=== PATIENT | male | born 1960 | race Caucasian/White ===

== ENCOUNTER 2017-04-14 16:41 | Inpatient (IN) | payer MEDICARE, OTHER ==
[~2017-04-14] VITALS: Ht 188 cm; Wt 79.0 kg
[2017-04-14 17:20] VITALS: TEMP 97.8
[2017-04-14] MEDS ORDERED: SOD CHLORIDE 0.9% 1,000 ML IV STA ×2 (17:28→18:48)
[2017-04-14] MEDS ORDERED: CEFTRIAXONE 1 GM/50 ML (PMX) 50 ML IVPB ONE (17:30)
[2017-04-14] MEDS ORDERED: VANCOMYCIN 1 GM (PMX) 250 ML IVPB SCH (17:30)
[2017-04-14 17:57] LABS: BASOPHIL # 0.1 10^3/ul (0.0-0.1); BASOPHILS % 0.6 % (0.0-2.0); EOSINOPHILS # 0.1 10^3/ul (0.0-0.5); HEMATOCRIT 26.7 % (42.0-52.0); HEMOGLOBIN 8.3 g/dl (14.0-18.0); LYMPHOCYTES # 2.6 10^3/ul (0.8-2.9); LYMPHOCYTES % 25.5 % (15.0-51.0); MEAN CORPUSCULAR HEMOGLOBIN 25.2 pg (29.0-33.0); MEAN CORPUSCULAR HGB CONC 31.1 g/dl (32.0-37.0); MEAN CORPUSCULAR VOLUME 80.9 fl (82.0-101.0); MEAN PLATELET VOLUME 9.4 fl (7.4-10.4); MONOCYTE # 0.8 10^3/ul (0.3-0.9); MONOCYTES % 7.8 % (0.0-11.0); NEUTROPHIL # 6.5 10^3/ul (1.6-7.5); NEUTROPHILS % 64.5 % (39.0-77.0); PLATELET COUNT 818 10^3/UL (140-415); RED CELL DISTRIBUTION WIDTH 16.2 % (11.5-14.5)
[2017-04-14 18:12] LABS: INR 1.16; PROTIME 14.9 Sec (12.2-14.2); PT RATIO 1.2
[2017-04-14 18:13] LABS: PARTIAL THROMBOPLASTIN TIME 35.7 Sec (25.0-35.0)
--- NOTE | 2017-04-14 18:16 | ERD ---
ER Documentation Chief Complaint Chief Complaint HYPOTENSIVE ON SCENE WITH RIGHT HEEL WOUND POSSIBLE INFECTION HPI This is a 56-year-old diabetic who states that he was attempting to walk even though he has a left BKA and twisted his right ankle approximately 2 weeks ago. Said his ankle inverted and he heard a pop. He said he got back into his bed. He said from that point on he has been being taking care of by a home health nurse daily. He says he has had some bleeding wound from the right lateral malleolus and also from the heel. He states he has been having daily wound dressings placed but has not had an x-ray or any exam by a physician or other medical personnel. The patient states he has diabetic neuropathy and cannot feel his foot or ankle but can feel the rojas area. He states he has had no fever GI symptoms, chest pain cough or shortness of breath. He said his aboriginal community council member took his blood pressure today and was reading 90/60 so EMS was called ROS All systems reviewed and are negative except as per history of present illness. Medications Home Meds Reported Medications Atorvastatin* (Atorvastatin*) 40 Mg Tablet, 40 MG PO QHS, #30 TAB 04/14/17 Glipizide* (Glipizide*) 10 Mg Tablet, 10 MG PO AC BREAKFAST, TAB 04/14/17 Aspirin* (Aspirin* EC) 81 Mg Tablet.dr, 81 MG PO DAILY, TAB 04/14/17 Lisinopril* (Lisinopril*) 10 Mg Tablet, 10 MG PO DAILY, #30 TAB 04/14/17 Allergies Allergies: Coded Allergies: No Known Drug Allergies (Verified Allergy, Unknown, 04/14/17) PMhx/Soc History of Surgery: Yes (LEFT BKA) Hx 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 Disorder: No Hx Respiratory Disorders: No Hx Cardiac Disorders: No Hx Psychiatric Problems: No Hx Miscellaneous Medical Probl: Yes (DM) Hx Alcohol Use: No Hx Substance Use: No Hx Tobacco Use: No Smoking Status: Former smoker FmHx Family History: No coronary disease Physical Exam Vitals Vital Signs Date Time Temp Pulse Resp B/P Pulse Ox O2 Delivery O2 Flow Rate FiO2 04/14/17 20:11 80 16 101/77 100 Nasal Cannula 2.0 04/14/17 18:30 101 15 114/62 93 Nasal Cannula 4.0 04/14/17 17:20 97.8 100 16 95/69 94 Nasal Cannula 1.0 04/14/17 16:49 98.6 69 20 98/54 98 Physical Exam Const: Well-developed, well-nourished Head: Atraumatic, normocephalic Eyes: Normal Conjunctiva, PERRLA, EOMI, normal sclera, no nystagmus ENT: Normal External Ears, Nose and Mouth, moist mucus membranes. Neck: Full range of motion. No meningismus, no lymphadenopathy. Resp: Clear to auscultation bilaterally, no wheezing, rhonchi, rales Cardio: Regular rate and rhythm, no murmurs, S1 S2 present Abd: Soft, non tender x 4, non distended. Normal bowel sounds, no guarding or rebound, no pulsitile abdominal masses or bruits Skin: No petechiae or rashes, no ecchymosis , no maculopapular rash Back: No midline or flank tenderness Ext: [Left BKA, right ankle has gross deformity fracture there is an open circular wound at the right lateral malleolus that is bleeding there is soft tissue swelling and some mild/moderate erythema to the right lateral malleolus, there is also wounds to the heel on the lateral aspect with ulcerations, Refill less than 2 seconds on the right foot, posterior tibial pulse intact Neur: Awake and alert, STR 5/5 x 4, sensation intact x 4 however he cannot feel his right foot at baseline and this is consistent today, no focal findings, cerebellum intact Psych: Normal Mood and Affect Result Diagram: 04/14/17 1745 04/14/17 1745 Results 24 hrs Laboratory Tests Test 04/14/17 17:45 White Blood Count 10.010^3/ul Red Blood Count 3.3010^6/ul Hemoglobin 8.3g/dl Hematocrit 26.7% Mean Corpuscular Volume 80.9fl Mean Corpuscular Hemoglobin 25.2pg Mean Corpuscular Hemoglobin Concent 31.1g/dl Red Cell Distribution Width 16.2% Platelet Count 41801^3/UL Mean Platelet Volume 9.4fl Neutrophils % 64.5% Lymphocytes % 25.5% Monocytes % 7.8% Eosinophils % 1.0% Basophils % 0.6% Nucleated Red Blood Cells % 0.0/100WBC Neutrophils # 6.510^3/ul Lymphocytes # 2.610^3/ul Monocytes # 0.810^3/ul Eosinophils # 0.110^3/ul Basophils # 0.110^3/ul Nucleated Red Blood Cells # 0.010^3/ul Prothrombin Time 14.9Sec Prothrombin Time Ratio 1.2 INR International Normalized Ratio 1.16 Activated Partial Thromboplast Time 35.7Sec Sodium Level 137mmol/L Potassium Level 5.4mmol/L Chloride Level 100mmol/L Carbon Dioxide Level 21mmol/L Anion Gap 21 Blood Urea Nitrogen 59mg/dl Creatinine 3.45mg/dl Glucose Level 213mg/dl Calcium Level 9.4mg/dl Total Bilirubin 0.1mg/dl Direct Bilirubin 0.00mg/dl Indirect Bilirubin 0.1mg/dl Aspartate Amino Transf (AST/SGOT) 28IU/L Alanine Aminotransferase (ALT/SGPT) 21IU/L Alkaline Phosphatase 206IU/L Total Protein 9.8g/dl Albumin 3.4g/dl Current Medications Medications (Trade) Dose Ordered Sig/Daniel Route PRN Reason Start Time Stop Time Status Last Admin Dose Admin Sodium Chloride 1,000 ml @ 1,000 mls/hr Q1H STAT IV 04/14/17 17:28 04/14/17 18:27 DC 04/14/17 18:03 Ceftriaxone Sodium 50 ml @ 100 mls/hr ONCE ONCE IVPB 04/14/17 17:30 04/14/17 17:59 DC 04/14/17 19:29 Vancomycin HCl 250 ml @ 125 mls/hr ONCE IVPB 04/14/17 17:30 04/14/17 19:29 DC 04/14/17 20:06 Sodium Chloride (NS) 1,000 ml @ 1,000 mls/hr Q1H STAT IV 04/14/17 18:48 04/14/17 19:47 DC 04/14/17 19:34 Procedures/MDM PROCEDURE: XR Right Ankle CLINICAL INDICATION: Trauma TECHNIQUE: Standard 3 view radiographs were submitted. COMPARISON: None FINDINGS: Osseous structures: There is fragmentation of the and increased sclerosis involving the tarsal bones and metatarsals most likely representing neurotrophic joint disease. There is erosion and poor definition to the posterior malleolus. There is fragmentation of the lateral malleolus. Calcaneal spurring is seen at the insertion of the Achilles tendon and plantar aponeurosis. Periosteal reaction is seen along the posterolateral distal tibial shaft. Joint spaces: There is posterior dislocation at the subtalar joint with severe talar inversion. Soft tissues: There is diffuse soft tissue swelling which is most extensive medially with the suggestion of an ulceration or subcutaneous air. Vascular calcification is noted. IMPRESSION: 1. Extensive fragmentation involving the tarsal bones and proximal metatarsals with increased sclerosis. This likely represents neurotrophic joint disease, osteomyelitis cannot be excluded. 2. Erosion of the posterior malleolus and fragmentation of the lateral malleolus. 3. Posterior subtalar dislocation with severe inversion of the talus. 4. Soft tissue swelling and either ulceration or mass or subcutaneous air seen medial to the distal tibia. Vascular calcification is noted. Stella Best, Physician Date Time Electronically viewed and signed by Stella Best Physician on 04/14/2017 19:10 RH/ CC: HERBERTH HAMMER DO PROCEDURE: XR Chest. CLINICAL INDICATION: Trauma. TECHNIQUE: Single frontal view of the chest was obtained. COMPARISON: None FINDINGS: The cardiomediastinal silhouette is normal in size. No focal consolidation is seen. No pleural effusion is seen. No definite pneumothorax. No acute osseous abnormality. IMPRESSION: No radiographic evidence of an acute cardiopulmonary process. RPTAT: GG Josué Kothari, Physician Date Time Electronically viewed and signed by Josué Kothari Physician on 04/14/2017 19:06 PH/ CC: HERBERTH HAMMER DO PROCEDURE: XR Tibia and Fibula. CLINICAL INDICATION: Trauma. TECHNIQUE: AP, lateral views of the right tibia and fibula were obtained. COMPARISON: No prior studies are available for comparison. FINDINGS: There is normal mineralization and alignment. Severe fracture dislocation of the foot and ankle joint. Irregularity of the distal posterior and medial to the. Likely fracture of the distal fibula. The knee joint is unremarkable. Marked periarticular soft tissue swelling and deformity of the foot and ankle joint. IMPRESSION: 1. Severe complex fracture dislocation of the foot and ankle joint with fracture deformity of the posterior and medial tibial and likely distal fibula. CT correlation is recommended. Please refer to dedicated x-ray series of the right ankle or detailed description of ankle fracture. RPTAT:AAJJ Alyson Skelton Physician Date Time Electronically viewed and signed by Alyson Skelton Physician on 04/14/2017 19:11 ZANDER/ CC: HERBERTH HAMMER DO Reviewed the findings with Dr. Gao of orthopedics. States that this type of injury is usually nonsurgical and will result in a likely amputation. I did discuss this with the patient We will admit for open fracture of the ankle with early infection He also has elevated creatinine of 3.45 Departure Diagnosis: Primary Impression: Open right ankle fracture Encounter type: initial encounter Open fracture type: open type I or II Qualified Code: S82.891B - Type I or II open fracture of right ankle, initial encounter Additional Impression: Renal failure Renal failure chronicity: unspecified chronicity Qualified Code: N19 - Renal failure, unspecified chronicity Condition: Stable HERBERTH HAMMER DO Apr 14, 2017 18:16
[2017-04-14 18:18] LABS: ALBUMIN 3.4 g/dl (3.3-4.9); BILIRUBIN,INDIRECT 0.1 mg/dl (0-1.1); BILIRUBIN,TOTAL 0.1 mg/dl (0.2-1.3); CALCIUM 9.4 mg/dl (8.4-10.2); CREATININE 3.45 mg/dl (0.61-1.24); POTASSIUM 5.4 mmol/L (3.5-5.1); TOTAL PROTEIN 9.8 g/dl (6.1-8.1)
--- NOTE | 2017-04-14 19:06 | RADRPT ---
PROCEDURE: XR Chest. CLINICAL INDICATION: Trauma. TECHNIQUE: Single frontal view of the chest was obtained. COMPARISON: None FINDINGS: The cardiomediastinal silhouette is normal in size. No focal consolidation is seen. No pleural effusion is seen. No definite pneumothorax. No acute osseous abnormality. IMPRESSION: No radiographic evidence of an acute cardiopulmonary process. RPTAT: GG Josué Kothari Physician Date Time Electronically viewed and signed by Josué Kothari Physician on 04/14/2017 19:06 /
--- NOTE | 2017-04-14 19:10 | RADRPT ---
PROCEDURE: XR Right Ankle CLINICAL INDICATION: Trauma TECHNIQUE: Standard 3 view radiographs were submitted. COMPARISON: None FINDINGS: Osseous structures: There is fragmentation of the and increased sclerosis involving the tarsal bones and metatarsals most likely representing neurotrophic joint disease. There is erosion and poor defi nition to the posterior malleolus. There is fragmentation of the lateral malleolus. Calcaneal spurri ng is seen at the insertion of the Achilles tendon and plantar aponeurosis. Periosteal reaction is s een along the posterolateral distal tibial shaft. Joint spaces: There is posterior dislocation at the subtalar joint with severe talar inversion. Soft tissues: There is diffuse soft tissue swelling which is most extensive medially with the sugges tion of an ulceration or subcutaneous air. Vascular calcification is noted. IMPRESSION: 1. Extensive fragmentation involving the tarsal bones and proximal metatarsals with increased scler osis. This likely represents neurotrophic joint disease, osteomyelitis cannot be excluded. 2. Erosion of the posterior malleolus and fragmentation of the lateral malleolus. 3. Posterior subtalar dislocation with severe inversion of the talus. 4. Soft tissue swelling and either ulceration or mass or subcutaneous air seen medial to the distal tibia. Vascular calcification is noted. Physician Hung Date Time Electronically viewed and signed by Physician Hung on 04/14/2017 19:10 /
--- NOTE | 2017-04-14 19:11 | RADRPT ---
PROCEDURE: XR Tibia and Fibula. CLINICAL INDICATION: Trauma. TECHNIQUE: AP, lateral views of the right tibia and fibula were obtained. COMPARISON: No prior studies are available for comparison. FINDINGS: There is normal mineralization and alignment. Severe fracture dislocation of the foot and ankle nehemias nt. Irregularity of the distal posterior and medial to the. Likely fracture of the distal fibula. Th e knee joint is unremarkable. Marked periarticular soft tissue swelling and deformity of the foot an d ankle joint. IMPRESSION: 1. Severe complex fracture dislocation of the foot and ankle joint with fracture deformity of the p osterior and medial tibial and likely distal fibula. CT correlation is recommended. Please refer to dedicated x-ray series of the right ankle or detailed description of ankle fracture. RPTAT:AAJJ Physician Paresh Date Time Electronically viewed and signed by Physician Paresh on 04/14/2017 19:11 ZANDER/
[2017-04-14] MEDS ORDERED: LISI10TA2 PO (20:19)
[2017-04-14] MEDS ORDERED: GLIP-95 PO (20:20)
[2017-04-14] MEDS ORDERED: ASPI-664 PO (20:20)
[2017-04-14] MEDS ORDERED: ATOR40TA68 PO (20:21)
[2017-04-14] MEDS ORDERED: SOD CHLORIDE 0.9% 1,000 ML IV SCH ×2 (22:02→22:13)
[2017-04-14] MEDS ORDERED: ONDANSETRON 4 MG INJ IV PRN ×2 (22:30)
[2017-04-14] MEDS ORDERED: morphine 2 MG INJ IV PRN (22:30)
[2017-04-14] MEDS ORDERED: NACL 0.9% 3 ML SYG IV SCH (22:30)
[2017-04-14] MEDS ORDERED: ACETAMINOPHEN 325 MG TAB PO PRN ×2 (22:30)
[2017-04-14] MEDS ORDERED: HYDROCODONE/APAP (5/325) TAB PO PRN (22:30)
--- NOTE | 2017-04-14 23:15 | RADRPT ---
PROCEDURE: CT of the right ankle without contrast. CLINICAL INDICATION: Pain. TECHNIQUE: CT scan of the right ankle was performed on a multi-detector high-resolution CT scanner . Contiguous axial images were obtained without intravenous contrast. Coronal and sagittal reforma tted images were also obtained. Images were reviewed on the PACS workstation. DICOM images are avai lable. One or more of the following dose reduction techniques were used: - Automated exposure control. - Adjustment of the mA and/or kV according to patient size. - Use of iterative reconstruction technique. Exam CTD/vol = 18.31 mGy. Total exam DLP = 472.65 mGy-cm. COMPARISON: None. FINDINGS: There are extensive fragmentation and erosive changes about the mid and hind foot. There is anterior tibiotalar dislocation. There are extensive cortical erosions about the mid and hind foot and areas of periosteal thickening about the distal tibia and fibula. There is surrounding increased soft tis moiz with fluid and gas. There is extensive subcutaneous stranding. IMPRESSION: Extensive fragmentation and erosive changes about the mid and hind foot likely represents neuropathi c joint disease. There are changes suggestive of superimposed osteomyelitis with surrounding increas ed soft tissue, fluid and gas concerning for gas gangrene. Anterior tibiotalar dislocation. A call report was made to Dr. Hernández at 11:15 p.m. .Segundo Henao MD, MD Date Time Electronically viewed and signed by .Segundo Henao MD, MD on 04/14/2017 23:15 .T/
[2017-04-15] MEDS ORDERED: PIPER-TAZO 2.25 GM (PMX) 50 ML IVPB SCH (00:30)
--- NOTE | 2017-04-15 00:55 | HP ---
Date/Time of Note Date/Time of Note DATE: 04/15/17 TIME: 00:36 Assessment/Plan VTE Prophylaxis VTE Prophylaxis Intervention: contraindicated VTE Contraindication Reason: amputee, sx procedure on lower extremity Lines/Catheters IV C[facility]ter Type [facility]from [facility]): Saline Lock Assessment/Plan Chief Complaint/Hosp Course This is a 56-year-old male being admitted to the [facility] floor for: #1 Right lower extremity infection with possible gas gangrene: X-rays and CT scan show Severe complex fracture dislocation of the foot and ankle joint with fracture deformity of the posterior and medial tibial and likely distal fibula as well as possible signs of gas gangrene/osteomyelitis. The current time lactate is 1.1. Will treat with empiric antibiotics vancomycin and Zosyn and clindamycin all renally dosed. Orthopedic surgery has been consulted patient likely will need surgical intervention/amputation. I will obtain a preop EKG and echocardiogram as well as a cardiology consult for surgery clearance. #2 right foot and ankle joint fracture: Orthopedic surgery has been consulted. Please see #1. Patient has a history of a right foot Charcot joint. As well as right plantar foot ulcer. #3 normocytic anemia: We will check iron studies, this likely could be secondary to patient underlying kidney disease. Will continue to monitor. And transfuse as necessary. #4 renal failure, acute versus chronic: I do not have a baseline at this time, however patient was noted to have acute kidney injury during his admission for sepsis [facility] the [facility] according to the [place] doctor I spoke to with elevation in creatinine from around 1-2. At the current time we will check a renal ultrasound, will check urine microscopic, will check urine studies. Will renally dose all medications will avoid nephrotoxic agents. Hold VANDANA inhibitor lisinopril 10 mg at the current time. #5 diabetes mellitus: At the current time will hold patient's oral medications. Will put the patient on insulin sliding scale. Patient is also on Lantus 30 mg at night. However I am unsure whether patient is compliant with medications. Will check a hemoglobin A1c. #6 hyperlipidemia: We will check lipid panel, continue atorvastatin 40 mg #7 Hypertension: Continue monitor blood pressure, will hold lisinopril at this time secondary to renal failure. #8 DVT GI prophylaxis: At the current time will hold mechanical and chemical anticoagulation secondary to patient being an amputee as well as possible plan for surgical intervention in the a.m. by orthopedic surgery, no GI prophylaxis indicated. Further treatment strategy will be implemented as per the clinical course Problems: HPI/ROS Admit Date/Time Admit Date/Time Hx of Present Illness Chief complaint: Twisted right ankle This is a 56-year-old diabetic who states that he was attempting to walk even though he has a left BKA and twisted his right ankle approximately 2 weeks ago. Of note patient is a poor historian. He states that he was walking 2 weeks ago and while walking his ankle inverted and he heard a pop. He said he got back into his bed. He said from that point on he has been being taking care of by a home health nurse daily. He says he has had some bleeding wound from the right lateral malleolus and also from the heel. He states he has been having daily wound dressings placed but has not had an x-ray or any exam by a physician or other medical personnel. The patient states he has diabetic neuropathy and cannot feel his foot or ankle but can feel the rojas area. He states he has had no fever GI symptoms, chest pain cough or shortness of breath. He said his qa architect took his blood pressure today and was reading 90/ 60 so EMS was called. Of note, I was able to get in touch with the [place] and I spoke with Dr. Gardner who kindly updated me on the patient's chronic history. She stated the patient' s history of diabetes mellitus hypertension he also is noted to have right foot Charcot joint and chronic right osteomyelitis and a plantar ulcer of the right foot. He has been apparently been seen by the wound clinic but he missed his most recent appointment. He also had a left BKA in 2013. Allergies: NKDA Medications: Lisinopril 10 mg once a day Aspirin 81 mg once a day Lantus 30 units nightly Metformin 1000 mg twice daily Glipizide 10 mg twice daily Atorvastatin 40 mg once daily The above medications were obtained from the [place] physician Dr. Gardner, unsure whether patient is actually compliant with his medications as patient did not recall the meds that he takes. ROS Const: As per HPI Eyes : No pain discharge or redness or change in visual acuity ENT: No pain, sore throat, congestion, congestion, dysphagia or discharge Respiratory: No shortness of breath, cough, sputum, wheezing, or pleuritic pain Cardiovascular: No chest pain, palpitation, PND, or edema GI : no change in appetite, abdominal pain, nausea, vomiting, diarrhea, constipation, or change in the color his stool Genitourinary: No dysuria, hematuria, flank pain , discharge or CVA tenderness Musculoskeletal: As per HPI Skin: No rash, bruising or hives Neuro: No headache, dizziness, syncope, seizure, focal weakness Endocrine: No polyuria, polydipsia, temperature intolerance Psych: No hallucination, depression, anxiety or suicidal ideation PMH/Family/Social Past Medical History Diabetes mellitus, hypertension, hyperlipidemia, chronic right osteomyelitis of the foot, chronic right foot plantar ulcer, history of left BKA 2013 Past Surgical History Left BKA 2013 Family History Significant Family History: no pertinent family hx Social History Alcohol Use: none Smoking Status: Never smoker Drug Use: none Exam/Review of Systems Vital Signs Vitals Vital Signs Date Time Temp Pulse Resp B/P Pulse Ox O2 Delivery O2 Flow Rate FiO2 04/14/17 20:11 80 16 101/77 100 Nasal Cannula 2.0 04/14/17 17:20 97.8 Exam Exam General: Patient is lying in bed in no acute distress. HEENT: Atraumatic, normocephalic. The pupils are equal, round and reactive. Extraocular motor are intact, poor dentition Neck: Supple with full range of motion. No rigidity or meningismus Chest: Nontender Lungs: Clear to auscultation bilaterally no crackles rales or wheezing Heart: Normal S1-S2, Regular rhythm and rate. No murmur, S3, or S4 Abdomen: Soft , nontender, nondistended , bowel sounds are present. No guarding no rebound tenderness , No masses or organomegaly. No costovertebral temporal angle mass Extremities: Left BKA, right lower extremity was wrapped in the ER and patient deferred examination at this time. DC imaging results for further details as well as ER physician documentation. Neurologic: Normal mental status, speech normal, cranial nerves II through XII are intact, Psych: Patient does not appear to have good knowledge of his medical history. I am unsure whether he has good insight into his clinical condition. I am unsure whether this patient is compliant with his medications as he does not know his own medical conditions. Additional Comments PROCEDURE: XR Right Ankle CLINICAL INDICATION: Trauma TECHNIQUE: Standard 3 view radiographs were submitted. COMPARISON: None FINDINGS: Osseous structures: There is fragmentation of the and increased sclerosis involving the tarsal bones and metatarsals most likely representing neurotrophic joint disease. There is erosion and poor definition to the posterior malleolus. There is fragmentation of the lateral malleolus. Calcaneal spurring is seen at the insertion of the Achilles tendon and plantar aponeurosis. Periosteal reaction is seen along the posterolateral distal tibial shaft. Joint spaces: There is posterior dislocation at the subtalar joint with severe talar inversion. Soft tissues: There is diffuse soft tissue swelling which is most extensive medially with the suggestion of an ulceration or subcutaneous air. Vascular calcification is noted. IMPRESSION: 1. Extensive fragmentation involving the tarsal bones and proximal metatarsals with increased sclerosis. This likely represents neurotrophic joint disease, osteomyelitis cannot be excluded. 2. Erosion of the posterior malleolus and fragmentation of the lateral malleolus. 3. Posterior subtalar dislocation with severe inversion of the talus. 4. Soft tissue swelling and either ulceration or mass or subcutaneous air seen medial to the distal tibia. Vascular calcification is noted. Physician Hung Date Time Electronically viewed and signed by Physician Hung on 04/14/2017 19:10 RH/ CC: HERBERTH HAMMER DO PROCEDURE: XR Chest. CLINICAL INDICATION: Trauma. TECHNIQUE: Single frontal view of the chest was obtained. COMPARISON: None FINDINGS: The cardiomediastinal silhouette is normal in size. No focal consolidation is seen. No pleural effusion is seen. No definite pneumothorax. No acute osseous abnormality. IMPRESSION: No radiographic evidence of an acute cardiopulmonary process. RPTAT: GG Josué Kothari Physician Date Time Electronically viewed and signed by Physician Sonia on 04/14/2017 19:06 PH/ CC: HERBERTH HAMMER DO PROCEDURE: XR Tibia and Fibula. CLINICAL INDICATION: Trauma. TECHNIQUE: AP, lateral views of the right tibia and fibula were obtained. COMPARISON: No prior studies are available for comparison. FINDINGS: There is normal mineralization and alignment. Severe fracture dislocation of the foot and ankle joint. Irregularity of the distal posterior and medial to the. Likely fracture of the distal fibula. The knee joint is unremarkable. Marked periarticular soft tissue swelling and deformity of the foot and ankle joint. IMPRESSION: 1. Severe complex fracture dislocation of the foot and ankle joint with fracture deformity of the posterior and medial tibial and likely distal fibula. CT correlation is recommended. Please refer to dedicated x-ray series of the right ankle or detailed description of ankle fracture. RPTAT:AAJJ Physician Paresh Date Time Electronically viewed and signed by Physician Paresh on 04/14/2017 19:11 ZANDER/ CC: HERBERTH HAMMER DO PROCEDURE: CT of the right ankle without contrast. CLINICAL INDICATION: Pain. TECHNIQUE: CT scan of the right ankle was performed on a multi-detector high- resolution CT scanner. Contiguous axial images were obtained without intravenous contrast. Coronal and sagittal reformatted images were also obtained. Images were reviewed on the PACS workstation. DICOM images are available. One or more of the following dose reduction techniques were used: - Automated exposure control. - Adjustment of the mA and/or kV according to patient size. - Use of iterative reconstruction technique. Exam CTD/vol = 18.31 mGy. Total exam DLP = 472.65 mGy-cm. COMPARISON: None. FINDINGS: There are extensive fragmentation and erosive changes about the mid and hind foot. There is anterior tibiotalar dislocation. There are extensive cortical erosions about the mid and hind foot and areas of periosteal thickening about the distal tibia and fibula. There is surrounding increased soft tissue with fluid and gas. There is extensive subcutaneous stranding. IMPRESSION: Extensive fragmentation and erosive changes about the mid and hind foot likely represents neuropathic joint disease. There are changes suggestive of superimposed osteomyelitis with surrounding increased soft tissue, fluid and gas concerning for gas gangrene. Anterior tibiotalar dislocation. A call report was made to Dr. Hammer at 11:15 p.m. .Segundo Henao MD, MD Date Time Electronically viewed and signed by .Segundo Henao MD, on 04/14/2017 23:15 .T/ CC: FABIANO TA Labs Result Diagram: 04/14/17 1745 04/14/17 1745 Medications Medications Current Medications Sodium Chloride (NS) 1,000 ml @ 75 mls/hr [id number] IV Last administered on t 23:44; Admin Dose 75 MLS/HR; Start 04/14/17 at 22:13 Ondansetron HCl (Zofran Inj) 4 mg Q6H PRN IV NAUSEA AND/OR VOMITING; Start at 22:30 Acetaminophen (Tylenol Tab) 650 mg Q6H PRN PO PAIN LEVEL 1-3 OR FEVER; Start 04/14/17 at 22:30 Acetaminophen/ Hydrocodone Bitart (Fitzhugh (5/325)) 1 tab Q6H PRN PO MODERATE PAIN LEVEL 4-6; Start 04/14/17 at 22:30 Morphine Sulfate 2 mg 2 mg Q4H PRN IV SEVERE PAIN LEVEL 7-10; Start 04/14/17 at 22:30 Piperacillin Sod/ Tazobactam Sod 50 ml @ 100 mls/hr Q8 IVPB ; Start 04/15/17 at 00:30; Status UNV Clindamycin HCl/ Dextrose (Cleocin 900 Mg/ D5W (Pmx)) 50 ml @ 50 mls/hr Q6 IVPB ; Start 04/15/17 at 00:30; Status UNV Miscellaneous Information (* Miscellaneous Pharmacy Order) Discontinue current oral sulfonylur... ONCE ONCE XX ; Start 04/15/17 at 01:00; Stop 04/15/17 at 01:01; Status UNV Diagnostic Test (Pha) (Accu-Chek) XX ; Start 04/15/17 at 02:00; Status UNV Miscellaneous Information (* Miscellaneous Pharmacy Order) HYPOGLYCEMIA PROTOCOL w... ONCE ONCE XX ; Start 04/15/17 at 01:00; Stop 04/15/17 at 01:01 ; Status UNV Insulin Aspart (Novolog Insulin Pen) NOVOLOG *MILD* ALGORI... Q4 SC ; Start at 01:00; Status UNV Miscellaneous Information (* Miscellaneous Pharmacy Order) Discontinue all previ... ONCE ONCE XX ; Start 04/15/17 at 01:00; Stop 04/15/17 at 01:01; Status UNV FABIANO TA Apr 15, 2017 00:54
[2017-04-15] MEDS ORDERED: MTF1000T PO (01:32)
[2017-04-15] MEDS ORDERED: LANT3I SC (01:33)
[2017-04-15 01:50] VITALS: BP 95/60; PULSE 85; RESP 17; Ht 188 cm; Wt 79.0 kg
[2017-04-15] MEDS ORDERED: GLUCOSE GEL 15 GRAM TUBE PO PRN ×2 (02:00)
[2017-04-15] MEDS ORDERED: GLUCAGON 1 MG INJ IM PRN (02:00)
[2017-04-15] MEDS ORDERED: DEXTROSE 50% 50 ML SYRINGE IV PRN ×2 (02:00)
[2017-04-15] MEDS ORDERED: GLUCOSE GEL 15 GRAM TUBE BUCCAL PRN (02:00)
[2017-04-15] MEDS: ACCU-CHEK XX SCH (02:00)
[2017-04-15] MEDS: PIPER-TAZO 2.25 GM (PMX) 50 ML IVPB SCH ×4 (02:38→23:06)
[2017-04-15] MEDS: CLINDAMYCIN 900 MG/D5W (PMX) 50 ML IVPB SCH ×5 (03:12→23:47)
[2017-04-15] MEDS: INSULIN ASPART [NOVOLOG] 3 ML PEN SC SCH ×6 (04:00→21:58)
[2017-04-15 06:37] LABS: ABNORMAL IP MESSAGE 1; HEMATOCRIT 21.2 % (42.0-52.0); MEAN CORPUSCULAR HEMOGLOBIN 24.8 pg (29.0-33.0); MEAN CORPUSCULAR HGB CONC 30.2 g/dl (32.0-37.0); MEAN CORPUSCULAR VOLUME 82.2 fl (82.0-101.0); MEAN PLATELET VOLUME 9.3 fl (7.4-10.4); PLATELET COUNT 556 10^3/UL (140-415); POSITIVE DIFF @See below; RED BLOOD COUNT 2.58 10^6/ul (4.70-6.10); RED CELL DISTRIBUTION WIDTH 15.9 % (11.5-14.5); WHITE BLOOD COUNT 7.5 10^3/ul (4.8-10.8)
[2017-04-15 06:50] LABS: HEMOGLOBIN 6.4 g/dl (14.0-18.0)
[2017-04-15 07:03] LABS: ALBUMIN 2.4 g/dl (3.3-4.9); ALBUMIN/GLOBULIN RATIO 0.44; BILIRUBIN,INDIRECT 0.1 mg/dl (0-1.1); BILIRUBIN,TOTAL 0.1 mg/dl (0.2-1.3); CALCIUM 8.1 mg/dl (8.4-10.2); CHOL/HDL RATIO 7.5 RATIO; CREATININE 2.51 mg/dl (0.61-1.24); MAGNESIUM 2.4 mg/dl (1.7-2.5); POTASSIUM 4.5 mmol/L (3.5-5.1); TOTAL PROTEIN 7.8 g/dl (6.1-8.1)
[2017-04-15 07:08] LABS: IRON 13 ug/dl (35-150)
[2017-04-15 07:17] LABS: TOTAL IRON BINDING CAPACITY 144 ug/dl (241-421)
[2017-04-15 07:27] LABS: THYROID STIMULATING HORMONE 1.37 MIU/L (0.465-4.680)
[2017-04-15 07:31] LABS: HEMATOCRIT 21.6 % (42.0-52.0)
[2017-04-15 07:39] LABS: HEMOGLOBIN 6.5 g/dl (14.0-18.0)
[2017-04-15 07:42] LABS: ANISOCYTOSIS 1+ (0-0); EOSINOPHILS % (M) 4 % (0-7); HYPOCHROMASIA 1+ (0-0); MICROCYTOSIS 1+ (0-0); MONOCYTES % (M) 8 % (0-11); PLATELET ESTIMATE INCREASED; POLYCHROMASIA 3+ (0-0)
[2017-04-15 07:54] VITALS: BP 97/62; RESP 18
--- NOTE | 2017-04-15 09:22 | RADRPT ---
PROCEDURE: Renal US. CLINICAL INDICATION: Abnormal renal function TECHNIQUE: Multiple sonographic images of the kidneys were obtained. The images were reviewed on a PACS workstation. COMPARISON: No prior studies are available for comparison. FINDINGS: Both kidneys are normal in echogenicity. There is normal renal cortical thickness without focal thi nning or scarring. No solid renal masses are identified. There is no evidence of renal calculi or obstructive uropathy. The right kidney measures 11.4 cm, and the left kidney measures 13.0 cm. Spot images of the pelvis demonstrating normally distended bladder with smooth contours. IMPRESSION: 1. Unremarkable renal ultrasound. No evidence of renal calculi or obstructive uropathy 2. Normal renal cortical thickness bilaterally RPTAT: HH .Randy Hardin MD, Date Time Electronically viewed and signed by .Randy Hardin MD, MD on 04/15/2017 09:22 .W/
--- NOTE | 2017-04-15 09:28 | CONS ---
Date/Time of Note Date/Time of Note DATE: 04/15/17 TIME: 09:27 Assessment/Plan Assessment/Plan Additional Assessment/Plan 1. Non Oliguric DA on CKD possibley stage III due to ATN and prerenal azotemia 2. Severe anemia s/p PRBC 3. 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 HTN 5. HL 6. Right Ankle Fracture Plan: US renal Urine studies IVF NS at 75 cc/hr, CK total, Uric acid need better Glycemic control if Cr continues to improve with IVF hydration then pt is cleared to have ankle surgery from renal stand point of view Thanks for consultaiton, I will continue to follow up on patient Consultation Date/Type/Reason Admit Date/Time 04/15/2017 Date of Consultation: Apr 15, 2017 Type of Consultation: NEPHROLOGY Reason for Consultation acute vs acute on chronic renal failure Referring Provider: FABIANO TA Hx of Present Illness 56-year-old diabetic who states that he was attempting to walk even though he has a left BKA and twisted his right ankle approximately 2 weeks ago. Of note patient is a poor historian. He states that he was walking 2 weeks ago and while walking his ankle inverted and he heard a pop. He said he got back into his bed. He said from that point on he has been being taking care of by a home health nurse daily. He says he has had some bleeding wound from the right lateral malleolus and also from the heel. He states he has been having daily wound dressings placed but has not had an x-ray or any exam by a physician or other medical personnel. The patient states he has diabetic neuropathy and cannot feel his foot or ankle but can feel the rojas area. He states he has had no fever GI symptoms, chest pain cough or shortness of breath. He said his director emergency department took his blood pressure today and was reading 90/60 so EMS was called. right ankle pain and swelling Constitutional: no complaints Eyes: no complaints ENT: no complaints Respiratory: no complaints Cardiovascular: no complaints Gastrointestinal: no complaints Genitourinary: no complaints Musculoskeletal: no complaints Skin: no complaints Neurologic: no complaints Endocrine: no complaints Lymphatic: no complaints Psychological: no complaints Immunologic: no complaints Past Medical History Medical History: diabetes, high cholesterol, hypertension, renal disease Past Surgical History Past Surgical Hx: no surgical history Family History Significant Family History: no pertinent family hx Social History Alcohol Use: none Smoking Status: Never smoker Drug Use: none Exam/Review of Systems Vital Signs Vitals Vital Signs Date Time Temp Pulse Resp B/P Pulse Ox O2 Delivery O2 Flow Rate FiO2 04/15/17 07:54 98.9 91 18 97/62 98 04/15/17 01:50 Room Air 04/15/17 00:52 2.0 Intake and Output 04/14/17 04/14/17 04/15/17 14:59 22:59 06:59 Intake Total 250 ml Balance 250 ml Exam Constitutional: alert Psych: no complaints Head: normocephalic Eyes: nl conjunctiva ENMT: nl external ears & nose Neck: supple Respiratory: clear to auscultation, diminished breath sounds, normal air movement Cardiovascular: nl pulses, regular rate and rhythm Gastrointestinal: non-tender, soft Musculoskeletal: nl extremities to inspection, nl gait and stance Extremities: normal pulses, other (right ankle swelling +) 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: MANAGING EDITOR II-XII intact, nl mental status Skin: nl turgor, rash or lesions Results Result Diagram: 04/15/17 0659 04/15/17 0534 Results 24 hrs Laboratory Tests Test 04/14/17 17:45 04/14/17 23:47 04/15/17 01:44 04/15/17 03:57 White Blood Count 10.0 Red Blood Count 3.30 L Hemoglobin 8.3 L Hematocrit 26.7 L Mean Corpuscular Volume 80.9 L Mean Corpuscular Hemoglobin 25.2 L Mean Corpuscular Hemoglobin Concent 31.1 L Red Cell Distribution Width 16.2 H Platelet Count 818 H Mean Platelet Volume 9.4 Neutrophils % 64.5 Lymphocytes % 25.5 Monocytes % 7.8 Eosinophils % 1.0 Basophils % 0.6 Nucleated Red Blood Cells % 0.0 Neutrophils # 6.5 Lymphocytes # 2.6 Monocytes # 0.8 Eosinophils # 0.1 Basophils # 0.1 Nucleated Red Blood Cells # 0.0 Prothrombin Time 14.9 H Prothrombin Time Ratio 1.2 INR International Normalized Ratio 1.16 Activated Partial Thromboplast Time 35.7 H Sodium Level 137 Potassium Level 5.4 H Chloride Level 100 Carbon Dioxide Level 21 Anion Gap 21 H Blood Urea Nitrogen 59 H Creatinine 3.45 H Glucose Level 213 Calcium Level 9.4 Total Bilirubin 0.1 L Direct Bilirubin 0.00 Indirect Bilirubin 0.1 Aspartate Amino Transf (AST/SGOT) 28 Alanine Aminotransferase (ALT/SGPT) 21 Alkaline Phosphatase 206 H Total Protein 9.8 H Albumin 3.4 Lactic Acid Level 1.1 Bedside Glucose 156 149 Test 04/15/17 05:22 04/15/17 05:34 04/15/17 06:59 04/15/17 07:56 Bedside Glucose 143 149 White Blood Count 7.5 # Red Blood Count 2.58 #L Hemoglobin 6.4 #*L 6.5 *L Hematocrit 21.2 #L 21.6 L Mean Corpuscular Volume 82.2 Mean Corpuscular Hemoglobin 24.8 L Mean Corpuscular Hemoglobin Concent 30.2 L Red Cell Distribution Width 15.9 H Platelet Count 556 #H Mean Platelet Volume 9.3 Neutrophils % Segmented Neutrophils % (Manual) 56 Band Neutrophils % (Manual) 1 Lymphocytes % Lymphocytes % (Manual) 31 Monocytes % Monocytes % (Manual) 8 Eosinophils % Eosinophils % (Manual) 4 Basophils % Nucleated Red Blood Cells % 0.0 Neutrophils # Neutrophils # (Manual) 4.2 Band Neutrophils # 0.0 Absolute Lymphocytes (Manual) 2.3 Lymphocytes # Monocytes # Absolute Monocytes (Manual) 0.6 Eosinophils # Basophils # Nucleated Red Blood Cells # Platelet Estimate INCREASED Polychromasia 3+ Hypochromasia 1+ Anisocytosis 1+ Microcytosis 1+ Sodium Level 142 Potassium Level 4.5 Chloride Level 111 H Carbon Dioxide Level 24 Anion Gap 12 # Blood Urea Nitrogen 54 H Creatinine 2.51 H Glucose Level 137 # Hemoglobin A1c 6.8 H Osmolality 308 H Calcium Level 8.1 L Magnesium Level 2.4 Iron Level 13 L Total Iron Binding Capacity 144 L Percent Iron Saturation 9 L Total Bilirubin 0.1 L Direct Bilirubin 0.00 Indirect Bilirubin 0.1 Aspartate Amino Transf (AST/SGOT) 31 Alanine Aminotransferase (ALT/SGPT) 27 Alkaline Phosphatase 140 H Total Protein 7.8 # Albumin 2.4 #L Globulin 5.40 H Albumin/Globulin Ratio 0.44 Triglycerides Level 139 Cholesterol Level 98 L LDL Cholesterol, Calculated 57 HDL Cholesterol 13 L Cholesterol/HDL Ratio 7.5 Thyroid Stimulating Hormone (TSH) 1.370 Medications Medications Current Medications Sodium Chloride (NS) 1,000 ml @ 75 mls/hr [id number] IV Last administered on t 23:44; Admin Dose 75 MLS/HR; Start 04/14/17 at 22:13 Ondansetron HCl (Zofran Inj) 4 mg Q6H PRN IV NAUSEA AND/OR VOMITING; Start at 22:30 Acetaminophen (Tylenol Tab) 650 mg Q6H PRN PO PAIN LEVEL 1-3 OR FEVER; Start 04/14/17 at 22:30 Acetaminophen/ Hydrocodone Bitart (Lonepine (5/325)) 1 tab Q6H PRN PO MODERATE PAIN LEVEL 4-6; Start 04/14/17 at 22:30 Morphine Sulfate 2 mg 2 mg Q4H PRN IV SEVERE PAIN LEVEL 7-10; Start 04/14/17 at 22:30 Clindamycin HCl/ Dextrose (Cleocin 900 Mg/ D5W (Pmx)) 50 ml @ 50 mls/hr Q6 IVPB Last administered on 04/15/17 06:58; Admin Dose 50 MLS/HR; Start 04/15/17 at 00:30 Diagnostic Test (Pha) (Accu-Chek) 1 ea 02 XX ; Start 04/15/17 at 02:00 Insulin Aspart (Novolog Insulin Pen) NOVOLOG *MILD* ALGORI... Q4 SC Last administered on 04/15/17 04:00; Admin Dose 1 UNIT; Start 04/15/17 at 01:00 Atorvastatin Calcium 40 mg 40 mg QHS PO ; Start 04/15/17 at 21:00 Piperacillin Sod/ Tazobactam Sod (Zosyn 2.25gm/ 50ml (Pmx)) 50 ml @ 100 mls/hr Q8 IVPB Last administered on 04/15/17 02:38; Admin Dose 100 MLS/HR; Start at 02:00 Miscellaneous Information 1 ea NOTE XX ; Start 04/15/17 at 02:00 Glucose (Glutose) 15 gm Q15M PRN PO DECREASED GLUCOSE; Start 04/15/17 at 02:00 Glucose (Glutose) 22.5 gm Q15M PRN PO DECREASED GLUCOSE; Start 04/15/17 at 02: 00 Dextrose (D50w Syringe) 25 ml Q15M PRN IV DECREASED GLUCOSE; Start 04/15/17 at 02:00 Dextrose (D50w Syringe) 50 ml Q15M PRN IV DECREASED GLUCOSE; Start 04/15/17 at 02:00 Glucagon (Glucagen) 1 mg Q15M PRN IM DECREASED GLUCOSE; Start 04/15/17 at 02: 00 Glucose (Glutose) 15 gm Q15M PRN BUCCAL DECREASED GLUCOSE; Start 04/15/17 at 02:00 KIMBERLY CONNOR MD Apr 15, 2017 09:28
[2017-04-15] MEDS: SOD FERRIC GLUC COMPLX 125 MG in SOD CHLORIDE 0.9% 100 ML IVPB SCH (11:00)
--- NOTE | 2017-04-15 12:23 | CONS ---
DATE OF ADMISSION: 04/14/2017 DATE OF CONSULTATION: 04/15/2017 HISTORY OF PRESENT ILLNESS: The patient is a 56-year-old male with known diabetes, who was admitted on April 14, 2017, when he came to the emergency room complaining of deformity along with an open wound and a necrotic lesion involving the heel. Because of the diabetes, his sensation involving the right lower extremity is severely compromised and he is known to have a neuropathic joint or Charcot's joint involving his right ankle and right foot. 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 According to the patient because of the obvious deformity and Charcot's joint, an amputation of the right lower extremity has been recommended, but was never done. About 2 weeks prior to his admission, he sustained a twisting injury to his right ankle while attempting to walk developing further deformity along with the open wound. Instead of seeking any medical attention, he has been treated with dressing changes by visiting nurses. Denies any history of fever or chills. According to further information obtained a primary care doctor [facility], he is also known to have hypertension and chronic osteomyelitis involving the right lower extremity and chronic kidney disease, At the time of my evaluation, his right lower extremity is heavily immobilized with the splint and dressings. There were obvious sensory compromise over the right toes. According to the ER physician's description, there is an open wound over the lateral aspect of the right ankle with extensive deformities. There also is an area of decubitus lesions involving the plantar area of the right heel. DIAGNOSTIC DATA: X-rays and CT scan of the right ankle and foot are showing extensive skeletal destructions typical of Charcot's joint. There were findings suggestive of osteomyelitis involving the distal portion of the tibia and fibula along with the talus and there was the presence of gas in the area, suggesting the presence of gas gangrene. The popliteal artery was palpable and the right lower extremity was warm up to the mid point of the right leg. 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 TREATMENT PLAN: BK amputation of the right lower extremity as soon as possible and as soon as his medical condition is cleared for surgery. Dictated By: In Catia Gao MD /[email or web address] /Document#: [id number]
[2017-04-15 12:35] LABS: ADD UMIC YES; UR ASCORBIC ACID NEGATIVE (NEGATIVE); UR BACTERIA FEW /HPF (NONE SEEN); UR BILIRUBIN (Dip) NEGATIVE (NEGATIVE); UR BLOOD (Dip) 1+ mg/dL (NEGATIVE); UR CLARITY CLEAR (CLEAR); UR COLOR YELLOW (YELLOW); UR GLUCOSE (Dip) NEGATIVE (NEGATIVE); UR KETONES (Dip) NEGATIVE (NEGATIVE); UR LEUKOCYTE ESTERASE (Dip) NEGATIVE Leu/ul (NEGATIVE); UR MUCUS FEW /HPF (NONE SEEN); UR NITRITE (Dip) NEGATIVE (NEGATIVE); UR RBC 3 /HPF (0-5); UR SPECIFIC GRAVITY (Dip) 1.015 (1.003-1.030); UR TOTAL PROTEIN (Dip) 1+ mg/dl (NEGATIVE); UR UROBILINOGEN (Dip) NEGATIVE (NEGATIVE)
[2017-04-15 14:00] VITALS: BP 129/84; RESP 20
--- NOTE | 2017-04-15 15:46 | CONS ---
Date/Time of Note Date/Time of Note DATE: 04/15/17 TIME: 15:41 Assessment/Plan Assessment/Plan Chief Complaint/Hosp Course CV preop evaluation gas gangrene and open fracture of right ankle DM HTN dyslipidemia severe anemia. recommendations: transfusions will be deferred to IM team Patient has any active cardiac symptoms or history of any cardiac disorder to me. No further cardiac workup would be indicated at this time prior to his needed orthopedic surgery/amputation. Patient would be at moderate risk of cardiovascular events due to his multiple risk factors. However most likely needs to be transfused prior to the surgery because of his severe anemia. Diabetes is being managed as per internal medicine. Continue aggressive risk factor modification. antibiotic management as per internal medicine Thank you for his referral. We will continue to follow along with you. MARIAN REED MD [facility] Problems: Consultation Date/Type/Reason Admit Date/Time 04/15/2017 Date of Consultation: Apr 15, 2017 Type of Consultation: CARDIOLOGY Reason for Consultation CV Preop Referring Provider: MARCO ANTONIO MCDONALD MD Hx of Present Illness CC: Foot pain. HPI: Thank you for his referral. History of present from the patient who is a very poor historian. From discussion with staff and physician on review of the chart. This is a 56-year-old gentleman with history of diabetes hypertension dyslipidemia. Patient also with history of peripheral vascular disease and status post left BKA who presented to emergency room with right foot pain. Patient has been evaluated by or 2 has been recommended to undergo right foot amputation. There were kindly asked about optimized from the cardiac standpoint. Patient denies any chest pain or pressure to me denies any palpitation to me he denies any history of cardiac disorder to me. He denies any history of cardiac disorder with previous amputations. His exercise tolerance is always severely limited due to his amputation of the leg. Allergies no known drug allergies Past medical history: Diabetes hypertension dyslipidemia peripheral vascular disease history of infection of the right lower leg status post left BKA. Medications as per medical reconciliation the best I could obtain. Social history patient does not smoke anymore. Family history: He denies any history of early coronary artery disease. Review of systems he denies all except for above-mentioned. Social History Alcohol Use: none Smoking Status: Never smoker Drug Use: none Exam/Review of Systems Vital Signs Vitals Vital Signs Date Time Temp Pulse Resp B/P Pulse Ox O2 Delivery O2 Flow Rate FiO2 11/28/17 14:00 98.4 89 20 129/84 98 04/15/17 01:50 Room Air 04/15/17 00:52 2.0 Intake and Output 04/14/17 04/14/17 04/15/17 15:00 23:00 07:00 Intake Total 250 ml Balance 250 ml Exam General: no acute distress HEENT: NC/AT. pupils are equal. round. NECK: NO JVD. no stridor. CV: RRR. systolic murmur; no gallop or rubs. PULM: no wheezing or rhonchi. GI: SOFT, NT, ND, no rebound or guarding Extremity: S/P L BKA. R leg in cast. neuro: awake and alert, OX3. Psych: calm and pleasant rectal: deferred : normal male. ECG NSR. nonspecific T wave abn Results Result Diagram: 04/15/17 0659 04/15/17 0534 Results 24 hrs Laboratory Tests Test 04/14/17 17:45 04/14/17 23:47 04/15/17 01:44 04/15/17 03:57 White Blood Count 10.0 Red Blood Count 3.30 L Hemoglobin 8.3 L Hematocrit 26.7 L Mean Corpuscular Volume 80.9 L Mean Corpuscular Hemoglobin 25.2 L Mean Corpuscular Hemoglobin Concent 31.1 L Red Cell Distribution Width 16.2 H Platelet Count 818 H Mean Platelet Volume 9.4 Neutrophils % 64.5 Lymphocytes % 25.5 Monocytes % 7.8 Eosinophils % 1.0 Basophils % 0.6 Nucleated Red Blood Cells % 0.0 Neutrophils # 6.5 Lymphocytes # 2.6 Monocytes # 0.8 Eosinophils # 0.1 Basophils # 0.1 Nucleated Red Blood Cells # 0.0 Prothrombin Time 14.9 H Prothrombin Time Ratio 1.2 INR International Normalized Ratio 1.16 Activated Partial Thromboplast Time 35.7 H Sodium Level 137 Potassium Level 5.4 H Chloride Level 100 Carbon Dioxide Level 21 Anion Gap 21 H Blood Urea Nitrogen 59 H Creatinine 3.45 H Glucose Level 213 Calcium Level 9.4 Total Bilirubin 0.1 L Direct Bilirubin 0.00 Indirect Bilirubin 0.1 Aspartate Amino Transf (AST/SGOT) 28 Alanine Aminotransferase (ALT/SGPT) 21 Alkaline Phosphatase 206 H Total Protein 9.8 H Albumin 3.4 Lactic Acid Level 1.1 Bedside Glucose 156 149 Test 04/15/17 05:22 04/15/17 05:34 04/15/17 06:59 04/15/17 07:56 Bedside Glucose 143 149 White Blood Count 7.5 # Red Blood Count 2.58 #L Hemoglobin 6.4 #*L 6.5 *L Hematocrit 21.2 #L 21.6 L Mean Corpuscular Volume 82.2 Mean Corpuscular Hemoglobin 24.8 L Mean Corpuscular Hemoglobin Concent 30.2 L Red Cell Distribution Width 15.9 H Platelet Count 556 #H Mean Platelet Volume 9.3 Neutrophils % Segmented Neutrophils % (Manual) 56 Band Neutrophils % (Manual) 1 Lymphocytes % Lymphocytes % (Manual) 31 Monocytes % Monocytes % (Manual) 8 Eosinophils % Eosinophils % (Manual) 4 Basophils % Nucleated Red Blood Cells % 0.0 Neutrophils # Neutrophils # (Manual) 4.2 Band Neutrophils # 0.0 Absolute Lymphocytes (Manual) 2.3 Lymphocytes # Monocytes # Absolute Monocytes (Manual) 0.6 Eosinophils # Basophils # Nucleated Red Blood Cells # Platelet Estimate INCREASED Polychromasia 3+ Hypochromasia 1+ Anisocytosis 1+ Microcytosis 1+ Sodium Level 142 Potassium Level 4.5 Chloride Level 111 H Carbon Dioxide Level 24 Anion Gap 12 # Blood Urea Nitrogen 54 H Creatinine 2.51 H Glucose Level 137 # Hemoglobin A1c 6.8 H Osmolality 308 H Calcium Level 8.1 L Magnesium Level 2.4 Iron Level 13 L Total Iron Binding Capacity 144 L Percent Iron Saturation 9 L Total Bilirubin 0.1 L Direct Bilirubin 0.00 Indirect Bilirubin 0.1 Aspartate Amino Transf (AST/SGOT) 31 Alanine Aminotransferase (ALT/SGPT) 27 Alkaline Phosphatase 140 H Total Protein 7.8 # Albumin 2.4 #L Globulin 5.40 H Albumin/Globulin Ratio 0.44 Triglycerides Level 139 Cholesterol Level 98 L LDL Cholesterol, Calculated 57 HDL Cholesterol 13 L Cholesterol/HDL Ratio 7.5 Thyroid Stimulating Hormone (TSH) 1.370 Test 04/15/17 11:37 04/15/17 12:00 Bedside Glucose 137 Urine Color YELLOW Urine Clarity CLEAR Urine pH 5.0 Urine Specific [place] 1.015 Urine Ketones NEGATIVE Urine Nitrite NEGATIVE Urine Bilirubin NEGATIVE Urine Urobilinogen NEGATIVE Urine Leukocyte Esterase NEGATIVE Urine Microscopic RBC 3 Urine Microscopic WBC 1 Urine Bacteria FEW A Urine Mucus FEW A Urine Hemoglobin 1+ H Urine Osmolality 479 Urine Random Sodium 77 Urine Glucose NEGATIVE Urine Total Protein 1+ H Medications Medications Current Medications Ondansetron HCl (Zofran Inj) 4 mg Q6H PRN IV NAUSEA AND/OR VOMITING; Start at 22:30 Acetaminophen (Tylenol Tab) 650 mg Q6H PRN PO PAIN LEVEL 1-3 OR FEVER; Start 04/14/17 at 22:30 Acetaminophen/ Hydrocodone Bitart 1 tab 1 tab Q6H PRN PO MODERATE PAIN LEVEL 4- 6; Start 04/14/17 at 22:30 Clindamycin HCl/ Dextrose (Cleocin 900 Mg/ D5W (Pmx)) 50 ml @ 50 mls/hr Q6 IVPB Last administered on 04/15/17 06:58; Admin Dose 50 MLS/HR; Start 04/15/17 at 00:30 Diagnostic Test (Pha) (Accu-Chek) 1 ea 02 XX ; Start 04/15/17 at 02:00 Insulin Aspart (Novolog Insulin Pen) NOVOLOG *MILD* ALGORI... Q4 SC Last administered on 04/15/17 04:00; Admin Dose 1 UNIT; Start 04/15/17 at 01:00 Atorvastatin Calcium 40 mg 40 mg QHS PO ; Start 04/15/17 at 21:00 Piperacillin Sod/ Tazobactam Sod (Zosyn 2.25gm/ 50ml (Pmx)) 50 ml @ 100 mls/hr Q8 IVPB Last administered on 04/15/17 09:37; Admin Dose 100 MLS/HR; Start at 02:00 Miscellaneous Information 1 ea NOTE XX ; Start 04/15/17 at 02:00 Glucose (Glutose) 15 gm Q15M PRN PO DECREASED GLUCOSE; Start 04/15/17 at 02:00 Glucose (Glutose) 22.5 gm Q15M PRN PO DECREASED GLUCOSE; Start 04/15/17 at 02: 00 Dextrose (D50w Syringe) 25 ml Q15M PRN IV DECREASED GLUCOSE; Start 04/15/17 at 02:00 Dextrose (D50w Syringe) 50 ml Q15M PRN IV DECREASED GLUCOSE; Start 04/15/17 at 02:00 Glucagon (Glucagen) 1 mg Q15M PRN IM DECREASED GLUCOSE; Start 11/28/17 at 02: 00 Glucose 15 gm 15 gm Q15M PRN BUCCAL DECREASED GLUCOSE; Start 04/15/17 at 02:00 Ferric Sodium Gluconate Complex/ Sodium Chloride (Ferrlecit/NS) 110 ml @ 110 mls/hr Q24H IVPB ; Start 04/15/17 at 11:00; Stop 04/19/17 at 11:59 Epoetin Joby (Epogen (Non Esrd/Non Oncology)) 6,000 units TuThSa@17 SC ; Start 04/15/17 at 17:00 MARIAN REED MD Apr 15, 2017 15:46
[2017-04-15] MEDS: EPOETIN 3000 UNITS/ML (NON ESRD/NON ONCOLOGY) SC SCH (17:38)
[2017-04-15 19:42] VITALS: BP 113/66; RESP 18
[2017-04-15] MEDS: ATORVASTATIN 40 MG TAB PO SCH (21:55)
[2017-04-16] MEDS: INSULIN ASPART [NOVOLOG] 3 ML PEN SC SCH ×6 (01:00→21:07)
[2017-04-16 01:49] VITALS: BP 96/55; RESP 18
[2017-04-16] MEDS: ACCU-CHEK XX SCH (02:00)
[2017-04-16] MEDS: CLINDAMYCIN 900 MG/D5W (PMX) 50 ML IVPB SCH ×4 (05:24→23:45)
[2017-04-16 05:55] LABS: BASOPHIL # 0.1 10^3/ul (0.0-0.1); EOSINOPHILS # 0.2 10^3/ul (0.0-0.5); EOSINOPHILS % 3.8 % (0.0-7.0); HEMATOCRIT 27.5 % (42.0-52.0); HEMOGLOBIN 8.7 g/dl (14.0-18.0); LYMPHOCYTES % 34.4 % (15.0-51.0); MEAN CORPUSCULAR HEMOGLOBIN 25.5 pg (29.0-33.0); MEAN CORPUSCULAR HGB CONC 31.6 g/dl (32.0-37.0); MEAN CORPUSCULAR VOLUME 80.6 fl (82.0-101.0); MEAN PLATELET VOLUME 8.8 fl (7.4-10.4); MONOCYTE # 0.6 10^3/ul (0.3-0.9); MONOCYTES % 10.8 % (0.0-11.0); NEUTROPHIL # 2.8 10^3/ul (1.6-7.5); NEUTROPHILS % 49.3 % (39.0-77.0); PLATELET COUNT 489 10^3/UL (140-415); RED BLOOD COUNT 3.41 10^6/ul (4.70-6.10); RED CELL DISTRIBUTION WIDTH 16.1 % (11.5-14.5); WHITE BLOOD COUNT 5.8 10^3/ul (4.8-10.8)
[2017-04-16 06:04] LABS: URIC ACID 8.7 mg/dl (3.1-7.9)
[2017-04-16 06:06] LABS: ALBUMIN 2.5 g/dl (3.3-4.9); ALBUMIN/GLOBULIN RATIO 0.46; BILIRUBIN,INDIRECT 1.1 mg/dl (0-1.1); BILIRUBIN,TOTAL 1.1 mg/dl (0.2-1.3); CALCIUM 8.3 mg/dl (8.4-10.2); CREATININE 1.83 mg/dl (0.61-1.24); POTASSIUM 4.6 mmol/L (3.5-5.1); TOTAL PROTEIN 7.9 g/dl (6.1-8.1)
[2017-04-16] MEDS: PIPER-TAZO 2.25 GM (PMX) 50 ML IVPB SCH ×3 (06:09→22:00)
[2017-04-16 06:14] LABS: CREATINE KINASE < 20 IU/L (23-200)
[2017-04-16 07:41] VITALS: BP 114/78; RESP 18
--- NOTE | 2017-04-16 07:51 | RADRPT ---
Echocardiogram Report Patient Name: JEANE PALMA Gender: Male Date: 1960 Study Date: 15-Apr-2017 Spectrographer: Jessica [facility] Location: 626-A Ref. Physician: MARIAN PRIEST Quality: Adequate Procedures: Transthoracic echocardiogram with complete 2D, M-Mode, and doppler examination. Indications: Pre-op. 2D/M Mode Doppler Measurement Value Normal Ranges Measurement Value Normal Ranges LVIDd 2D 4.6 3.5 - 5.6 cm AV Peak Nick 1.1 m/sec LVIDs 2D 3.0 2.1 - 4.1 cm AV Peak PG 4.8 mmHg LVPWd 2D 1.5 0.6 - 1.1 cm LVOT Peak Nick 0.8 m/sec IVSd 2D 1.4 0.6 - 1.1 cm LVOT Peak PG 2.7 mmHg AoR Diam 2D 3.4 2.0 - 3.7 cm MV E Peak Nick 0.7 m/sec EDV 2D 95.7 cm3 MV A Peak Nick 0.5 m/sec ESV 2D 27.5 cm3 MV E/A 1.3 LA Dimen 2D 4.1 2.3 - 4.0 cm MV Decel Time 160 msec MV Decel [place] 4 MV E/A 1.3 TR Peak Nick 2.2 m/sec TR Peak PG 20.0 mmHg RVSP 30.0 mmHg Findings Left Ventricle: Normal left ventricular systolic function. Normal left ventricular cavity size. Moderate concentric left ventricular hypertrophy. Ejection fraction is visually estimated at 55 %. Abnormal Diastolic Function. Right Ventricle: Normal right ventricular size. Normal right ventricular systolic function. Left Atrium: There is mild enlargement of left atrium. Right Atrium: The right atrium is normal in size. Mitral Valve: Mild mitral leaflet calcification. Mild mitral annular calcification. Trace mitral regurgitation. Aortic Valve: Right coronary cusp appears moderately calcified. Trileaflet aortic valve. No aortic regurgitation. Tricuspid Valve: Normal appearance of the tricuspid valve. Estimated peak PA systolic pressure 30 mmHg. There is mild tricuspid regurgitation. Pulmonic Valve: Normal pulmonic valve appearance. There is trace pulmonic regurgitation. Pericardium: Normal pericardium with no significant pericardial effusion. Aorta: Normal aortic root. IVC: Normal size and normal respiratory collapse consistent with normal right atrial pressure. Conclusions 1.Normal left ventricular systolic function. Normal left ventricular cavity size. Moderate concentric left ventricular hypertrophy. Ejection fraction is visually estimated at 55 %. Abnormal Diastolic Function. 2.There is mild enlargement of left atrium. 3.Mild mitral leaflet calcification. Mild mitral annular calcification. Trace mitral regurgitation. 4.Right coronary cusp appears moderately calcified. Trileaflet aortic valve. No aortic regurgitation. 5.Normal appearance of the tricuspid valve. Estimated peak PA systolic pressure 30 mmHg. There is mild tricuspid regurgitation. Electronically Signed By: Marian Priest 16-Apr-2017 07:51:04 -0800 Patient Name: JEANE PALMA Study Date: 15-Apr-2017 [id number]
--- NOTE | 2017-04-16 08:23 | CONS ---
Date/Time of Note Date/Time of Note DATE: 04/16/17 TIME: 08:21 Consult Date/Type/Reason Admit Date/Time Apr 14, 2017 at 22:04 Initial Consult Date 04/15/17 Type of Consultation: CARDIOLOGY Ordering Provider: MARCO ANTONIO MCDONALD MD Subjective cardiology follow up note: S: D/W staff pt with no chest pain or pressure. no PND orthopnea + foot pain O: General: no acute distress HEENT: NC/AT. pupils are equal. round. NECK: NO JVD. no stridor. CV: RRR. systolic murmur; no gallop or rubs. PULM: no wheezing or rhonchi. GI: SOFT, NT, ND, no rebound or guarding Extremity: S/P L BKA. R leg in cast. neuro: awake and alert, OX3. Psych: calm and pleasant rectal: deferred : normal male. ECG NSR. nonspecific T wave abn Objective Vital Signs Date Time Temp Pulse Resp B/P Pulse Ox O2 Delivery O2 Flow Rate FiO2 04/16/17 07:41 98.1 66 18 114/78 98 04/15/17 01:50 Room Air 04/15/17 00:52 2.0 Intake and Output 04/15/17 04/15/17 04/16/17 15:00 23:00 07:00 Intake Total 550 ml 1100 ml 790 ml Output Total 900 ml 500 ml Balance 550 ml 200 ml 290 ml Results/Medications Result Diagram: 04/16/17 0504/16/17 0526 Results 24 hrs Laboratory Tests Test 04/15/17 11:37 04/15/17 12:00 04/15/17 17:09 04/15/17 21:51 Bedside Glucose 137 282 H 146 Urine Color YELLOW Urine Clarity CLEAR Urine pH 5.0 Urine Specific [place] 1.015 Urine Ketones NEGATIVE Urine Nitrite NEGATIVE Urine Bilirubin NEGATIVE Urine Urobilinogen NEGATIVE Urine Leukocyte Esterase NEGATIVE Urine Microscopic RBC 3 Urine Microscopic WBC 1 Urine Bacteria FEW A Urine Mucus FEW A Urine Hemoglobin 1+ H Urine Osmolality 479 Urine Random Sodium 77 Urine Glucose NEGATIVE Urine Total Protein 1+ H Test 04/16/17 01:15 04/16/17 05:26 04/16/17 05:40 Bedside Glucose 117 109 White Blood Count 5.8 # Red Blood Count 3.41 #L Hemoglobin 8.7 #L Hematocrit 27.5 #L Mean Corpuscular Volume 80.6 L Mean Corpuscular Hemoglobin 25.5 L Mean Corpuscular Hemoglobin Concent 31.6 L Red Cell Distribution Width 16.1 H Platelet Count 489 H Mean Platelet Volume 8.8 Neutrophils % 49.3 Lymphocytes % 34.4 Monocytes % 10.8 Eosinophils % 3.8 Basophils % 1.0 Nucleated Red Blood Cells % 0.0 Neutrophils # 2.8 Lymphocytes # 2.0 Monocytes # 0.6 Eosinophils # 0.2 Basophils # 0.1 Nucleated Red Blood Cells # 0.0 Sodium Level 143 Potassium Level 4.6 Chloride Level 112 H Carbon Dioxide Level 24 Anion Gap 12 Blood Urea Nitrogen 38 #H Creatinine 1.83 H Glucose Level 110 Uric Acid 8.7 H Calcium Level 8.3 L Total Bilirubin 1.1 Direct Bilirubin 0.00 Indirect Bilirubin 1.1 Aspartate Amino Transf (AST/SGOT) 31 Alanine Aminotransferase (ALT/SGPT) 26 Alkaline Phosphatase 131 H Creatine Kinase < 20 L Total Protein 7.9 Albumin 2.5 L Globulin 5.40 H Albumin/Globulin Ratio 0.46 Lab Scanned Report BLOOD TRANSFUSION Medications Current Medications Ondansetron HCl (Zofran Inj) 4 mg Q6H PRN IV NAUSEA AND/OR VOMITING; Start at 22:30 Acetaminophen (Tylenol Tab) 650 mg Q6H PRN PO PAIN LEVEL 1-3 OR FEVER; Start 04/14/17 at 22:30 Acetaminophen/ Hydrocodone Bitart 1 tab 1 tab Q6H PRN PO MODERATE PAIN LEVEL 4- 6; Start 04/14/17 at 22:30 Clindamycin HCl/ Dextrose (Cleocin 900 Mg/ D5W (Pmx)) 50 ml @ 50 mls/hr Q6 IVPB Last administered on 04/16/17 05:24; Admin Dose 50 MLS/HR; Start 04/15/17 at 00:30 Diagnostic Test (Pha) (Accu-Chek) 1 ea 02 XX ; Start 04/15/17 at 02:00 Insulin Aspart (Novolog Insulin Pen) NOVOLOG *MILD* ALGORI... Q4 SC Last administered on 04/15/17 21:58; Admin Dose 1 UNIT; Start 04/15/17 at 01:00 Atorvastatin Calcium 40 mg 40 mg QHS PO Last administered on 04/15/17 21:55; Admin Dose 40 MG; Start 04/15/17 at 21:00 Piperacillin Sod/ Tazobactam Sod (Zosyn 2.25gm/ 50ml (Pmx)) 50 ml @ 100 mls/hr Q8 IVPB Last administered on 04/16/17 06:09; Admin Dose 100 MLS/HR; Start at 02:00 Miscellaneous Information 1 ea NOTE XX ; Start 04/15/17 at 02:00 Glucose (Glutose) 15 gm Q15M PRN PO DECREASED GLUCOSE; Start 04/15/17 at 02:00 Glucose (Glutose) 22.5 gm Q15M PRN PO DECREASED GLUCOSE; Start 04/15/17 at 02: 00 Dextrose (D50w Syringe) 25 ml Q15M PRN IV DECREASED GLUCOSE; Start 04/15/17 at 02:00 Dextrose (D50w Syringe) 50 ml Q15M PRN IV DECREASED GLUCOSE; Start 04/15/17 at 02:00 Glucagon (Glucagen) 1 mg Q15M PRN IM DECREASED GLUCOSE; Start 04/15/17 at 02: 00 Glucose 15 gm 15 gm Q15M PRN BUCCAL DECREASED GLUCOSE; Start 04/15/17 at 02:00 Ferric Sodium Gluconate Complex/ Sodium Chloride (Ferrlecit/NS) 110 ml @ 110 mls/hr Q24H IVPB ; Start 04/15/17 at 11:00; Stop 04/19/17 at 11:59 Epoetin Joby (Epogen (Non Esrd/Non Oncology)) 6,000 units TuThSa@17 SC Last administered on 04/15/17t 17:38; Admin Dose 6,000 UNITS; Start 04/15/17 at 17: 00 Assessment/Plan Chief Complaint/Hosp Course CV preop evaluation gas gangrene and open fracture of right ankle DM HTN dyslipidemia severe anemia. recommendations: transfusions will be deferred to IM team Patient has any active cardiac symptoms or history of any cardiac disorder to me. No further cardiac workup would be indicated at this time prior to his needed orthopedic surgery/amputation. echo reviewed. EF is wnl. Patient would be at moderate risk of cardiovascular events due to his multiple risk factors. Diabetes is being managed as per internal medicine. Continue aggressive risk factor modification. antibiotic management as per internal medicine Thank you for his referral. We will continue to follow along with you. MARIAN REED MD [facility] Problems: MARIAN REED MD Apr 16, 2017 08:23
--- NOTE | 2017-04-16 09:26 | CONS ---
Date/Time of Note Date/Time of Note DATE: 04/16/17 TIME: 09:22 Assessment/Plan Assessment/Plan Additional Assessment/Plan 1. Non Oliguric DA on CKD possibley stage III due to ATN and prerenal azotemia 2. Severe anemia s/p PRBC 3. 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 HTN 5. HL 6. Right Ankle Fracture 7. Hyperuricemia without gout Plan: Cr improved to 1.83 with IVF Hydration- continue IVF NS at 75 cc/hr US renal unremarkable allopurinol 100mg po x 1 then 100mg po daily for hyperuricemia need better Glycemic control pt is cleared to have ankle surgery from renal stand point of view I will continue to follow up on patient Consultation Date/Type/Reason Admit Date/Time Apr 14, 2017 at 22:04 Initial Consult Date 04/15/17 Type of Consultation: NEPHROLOGY Referring Provider: MARCO ANTONIO MCDONALD MD 24 HR Interval Summary Free Text/Dictation c/o right ankle pain and right knee pain ,Cr improved to 1.8 with IVF hydration but still high compared to baseline Exam/Review of Systems Vital Signs Vitals Vital Signs Date Time Temp Pulse Resp B/P Pulse Ox O2 Delivery O2 Flow Rate FiO2 04/16/17 07:41 98.1 66 18 114/78 98 04/15/17 01:50 Room Air 04/15/17 00:52 2.0 Intake and Output 04/15/17 04/15/17 04/16/17 15:00 23:00 07:00 Intake Total 550 ml 1100 ml 790 ml Output Total 900 ml 500 ml Balance 550 ml 200 ml 290 ml Exam Constitutional: alert Respiratory: clear to auscultation, diminished breath sounds, normal air movement Cardiovascular: nl pulses, regular rate and rhythm Gastrointestinal: non-tender, soft Musculoskeletal: nl extremities to inspection, nl gait and stance Extremities: normal pulses, other (right ankle swelling +) 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: TON CONTAINER SHIPPER II-XII intact, nl mental status Skin: nl turgor, rash or lesions Results Result Diagram: 04/16/1726 04/16/17525 Results 24 hrs Laboratory Tests Test 04/15/17 11:37 04/15/17 12:00 04/15/17 17:09 04/15/17 21:51 Bedside Glucose 137 282 H 146 Urine Color YELLOW Urine Clarity CLEAR Urine pH 5.0 Urine Specific [place] 1.015 Urine Ketones NEGATIVE Urine Nitrite NEGATIVE Urine Bilirubin NEGATIVE Urine Urobilinogen NEGATIVE Urine Leukocyte Esterase NEGATIVE Urine Microscopic RBC 3 Urine Microscopic WBC 1 Urine Bacteria FEW A Urine Mucus FEW A Urine Hemoglobin 1+ H Urine Osmolality 479 Urine Random Sodium 77 Urine Glucose NEGATIVE Urine Total Protein 1+ H Test 04/16/17 01:15 04/16/17 05:26 04/16/17 05:40 04/16/17 08:04 Bedside Glucose 117 109 119 White Blood Count 5.8 # Red Blood Count 3.41 #L Hemoglobin 8.7 #L Hematocrit 27.5 #L Mean Corpuscular Volume 80.6 L Mean Corpuscular Hemoglobin 25.5 L Mean Corpuscular Hemoglobin Concent 31.6 L Red Cell Distribution Width 16.1 H Platelet Count 489 H Mean Platelet Volume 8.8 Neutrophils % 49.3 Lymphocytes % 34.4 Monocytes % 10.8 Eosinophils % 3.8 Basophils % 1.0 Nucleated Red Blood Cells % 0.0 Neutrophils # 2.8 Lymphocytes # 2.0 Monocytes # 0.6 Eosinophils # 0.2 Basophils # 0.1 Nucleated Red Blood Cells # 0.0 Sodium Level 143 Potassium Level 4.6 Chloride Level 112 H Carbon Dioxide Level 24 Anion Gap 12 Blood Urea Nitrogen 38 #H Creatinine 1.83 H Glucose Level 110 Uric Acid 8.7 H Calcium Level 8.3 L Total Bilirubin 1.1 Direct Bilirubin 0.00 Indirect Bilirubin 1.1 Aspartate Amino Transf (AST/SGOT) 31 Alanine Aminotransferase (ALT/SGPT) 26 Alkaline Phosphatase 131 H Creatine Kinase < 20 L Total Protein 7.9 Albumin 2.5 L Globulin 5.40 H Albumin/Globulin Ratio 0.46 Lab Scanned Report BLOOD TRANSFUSION Medications Medications Current Medications Ondansetron HCl (Zofran Inj) 4 mg Q6H PRN IV NAUSEA AND/OR VOMITING; Start at 22:30 Acetaminophen (Tylenol Tab) 650 mg Q6H PRN PO PAIN LEVEL 1-3 OR FEVER; Start 04/14/17 at 22:30 Acetaminophen/ Hydrocodone Bitart 1 tab 1 tab Q6H PRN PO MODERATE PAIN LEVEL 4- 6; Start 04/14/17 at 22:30 Clindamycin HCl/ Dextrose (Cleocin 900 Mg/ D5W (Pmx)) 50 ml @ 50 mls/hr Q6 IVPB Last administered on 04/16/17 05:24; Admin Dose 50 MLS/HR; Start 04/15/17 at 00:30 Diagnostic Test (Pha) (Accu-Chek) 1 ea 02 XX ; Start 04/15/17 at 02:00 Insulin Aspart (Novolog Insulin Pen) NOVOLOG *MILD* ALGORI... Q4 SC Last administered on 04/15/17 21:58; Admin Dose 1 UNIT; Start 04/15/17 at 01:00 Atorvastatin Calcium 40 mg 40 mg QHS PO Last administered on 04/15/17 21:55; Admin Dose 40 MG; Start 04/15/17 at 21:00 Piperacillin Sod/ Tazobactam Sod (Zosyn 2.25gm/ 50ml (Pmx)) 50 ml @ 100 mls/hr Q8 IVPB Last administered on 04/16/17 06:09; Admin Dose 100 MLS/HR; Start at 02:00 Miscellaneous Information 1 ea NOTE XX ; Start 04/15/17 at 02:00 Glucose (Glutose) 15 gm Q15M PRN PO DECREASED GLUCOSE; Start 04/15/17 at 02:00 Glucose (Glutose) 22.5 gm Q15M PRN PO DECREASED GLUCOSE; Start 04/15/17 at 02: 00 Dextrose (D50w Syringe) 25 ml Q15M PRN IV DECREASED GLUCOSE; Start 04/15/17 at 02:00 Dextrose (D50w Syringe) 50 ml Q15M PRN IV DECREASED GLUCOSE; Start 04/15/17 at 02:00 Glucagon (Glucagen) 1 mg Q15M PRN IM DECREASED GLUCOSE; Start 04/15/17 at 02: 00 Glucose 15 gm 15 gm Q15M PRN BUCCAL DECREASED GLUCOSE; Start 04/15/17 at 02:00 Ferric Sodium Gluconate Complex/ Sodium Chloride (Ferrlecit/NS) 110 ml @ 110 mls/hr Q24H IVPB ; Start 04/15/17 at 11:00; Stop 04/19/17 at 11:59 Epoetin Joby (Epogen (Non Esrd/Non Oncology)) 6,000 units TuThSa@17 SC Last administered on 04/15/17 17:38; Admin Dose 6,000 UNITS; Start 04/15/17 at 17: 00 KIMBERLY CONNOR MD Apr 16, 2017 09:26
[2017-04-16] MEDS ORDERED: ALLOPURINOL 100 MG TAB PO ONE (09:30)
--- NOTE | 2017-04-16 10:02 | CONS ---
Date/Time of Note Date/Time of Note DATE: 04/16/17 TIME: 09:59 Assessment/Plan Assessment/Plan Additional Assessment/Plan I will remain available pending orthopedic surgical consultation and institute appropriate pain control if necessary at that time. Consultation Date/Type/Reason Admit Date/Time Apr 14, 2017 at 22:04 Hx of Present Illness Is a 56-year-old gentleman status post left lower extremity below the knee amputation was admitted [facility] with right lower extremity foot and ankle fracture I am asked to see patient for pain management consultation. In fact patient states he has no discomfort at this time secondary to right lower extremity peripheral neuropathy whereby he has lost all pain sensation. History is patient states he was just ambulating and rotating on the affected extremity and did not realize he had injured himself as above he frankly denies he has any discomfort at this time. However I will remain available as patient may have some surgical intervention. Past Medical History Medical History: diabetes, high cholesterol, hypertension, renal disease Past Surgical History Past Surgical Hx: no surgical history Social History Alcohol Use: none Smoking Status: Never smoker Drug Use: none Exam/Review of Systems Vital Signs Vitals Vital Signs Date Time Temp Pulse Resp B/P Pulse Ox O2 Delivery O2 Flow Rate FiO2 04/16/17 07:41 98.1 66 18 114/78 98 04/15/17 01:50 Room Air 04/15/17 00:52 2.0 Intake and Output 04/15/17 04/15/17 04/16/17 14:59 22:59 06:59 Intake Total 550 ml 1100 ml 790 ml Output Total 900 ml 500 ml Balance 550 ml 200 ml 290 ml Exam Constitutional: alert, oriented, well developed Musculoskeletal: No joint tenderness, No muscle tone, No muscle weakness, No nl extremities to inspection, No nl gait and stance, No other, No range of motion, No spine non-tender, No swelling Results Result Diagram: 04/16/1752504/16/17525 Results 24 hrs Laboratory Tests Test 04/15/17 11:37 04/15/17 12:00 04/15/17 17:09 04/15/17 21:51 Bedside Glucose 137 282 H 146 Urine Color YELLOW Urine Clarity CLEAR Urine pH 5.0 Urine Specific [place] 1.015 Urine Ketones NEGATIVE Urine Nitrite NEGATIVE Urine Bilirubin NEGATIVE Urine Urobilinogen NEGATIVE Urine Leukocyte Esterase NEGATIVE Urine Microscopic RBC 3 Urine Microscopic WBC 1 Urine Bacteria FEW A Urine Mucus FEW A Urine Hemoglobin 1+ H Urine Osmolality 479 Urine Random Sodium 77 Urine Glucose NEGATIVE Urine Total Protein 1+ H Test 04/16/17 01:15 04/16/17 05:26 04/16/17 05:40 04/16/17 08:04 Bedside Glucose 117 109 119 White Blood Count 5.8 # Red Blood Count 3.41 #L Hemoglobin 8.7 #L Hematocrit 27.5 #L Mean Corpuscular Volume 80.6 L Mean Corpuscular Hemoglobin 25.5 L Mean Corpuscular Hemoglobin Concent 31.6 L Red Cell Distribution Width 16.1 H Platelet Count 489 H Mean Platelet Volume 8.8 Neutrophils % 49.3 Lymphocytes % 34.4 Monocytes % 10.8 Eosinophils % 3.8 Basophils % 1.0 Nucleated Red Blood Cells % 0.0 Neutrophils # 2.8 Lymphocytes # 2.0 Monocytes # 0.6 Eosinophils # 0.2 Basophils # 0.1 Nucleated Red Blood Cells # 0.0 Sodium Level 143 Potassium Level 4.6 Chloride Level 112 H Carbon Dioxide Level 24 Anion Gap 12 Blood Urea Nitrogen 38 #H Creatinine 1.83 H Glucose Level 110 Uric Acid 8.7 H Calcium Level 8.3 L Total Bilirubin 1.1 Direct Bilirubin 0.00 Indirect Bilirubin 1.1 Aspartate Amino Transf (AST/SGOT) 31 Alanine Aminotransferase (ALT/SGPT) 26 Alkaline Phosphatase 131 H Creatine Kinase < 20 L Total Protein 7.9 Albumin 2.5 L Globulin 5.40 H Albumin/Globulin Ratio 0.46 Lab Scanned Report BLOOD TRANSFUSION Medications Medications Current Medications Ondansetron HCl (Zofran Inj) 4 mg Q6H PRN IV NAUSEA AND/OR VOMITING; Start at 22:30 Acetaminophen (Tylenol Tab) 650 mg Q6H PRN PO PAIN LEVEL 1-3 OR FEVER; Start 04/14/17 at 22:30 Acetaminophen/ Hydrocodone Bitart 1 tab 1 tab Q6H PRN PO MODERATE PAIN LEVEL 4- 6; Start 04/14/17 at 22:30 Clindamycin HCl/ Dextrose (Cleocin 900 Mg/ D5W (Pmx)) 50 ml @ 50 mls/hr Q6 IVPB Last administered on 04/16/17t 05:24; Admin Dose 50 MLS/HR; Start 04/15/17 at 00:30 Diagnostic Test (Pha) (Accu-Chek) 1 ea 02 XX ; Start 04/15/17 at 02:00 Insulin Aspart (Novolog Insulin Pen) NOVOLOG *MILD* ALGORI... Q4 SC Last administered on 04/15/17 21:58; Admin Dose 1 UNIT; Start 04/15/17 at 01:00 Atorvastatin Calcium 40 mg 40 mg QHS PO Last administered on 04/15/17 21:55; Admin Dose 40 MG; Start 04/15/17 at 21:00 Piperacillin Sod/ Tazobactam Sod (Zosyn 2.25gm/ 50ml (Pmx)) 50 ml @ 100 mls/hr Q8 IVPB Last administered on 04/16/17 06:09; Admin Dose 100 MLS/HR; Start at 02:00 Miscellaneous Information 1 ea NOTE XX ; Start 04/15/17 at 02:00 Glucose (Glutose) 15 gm Q15M PRN PO DECREASED GLUCOSE; Start 04/15/17 at 02:00 Glucose (Glutose) 22.5 gm Q15M PRN PO DECREASED GLUCOSE; Start 04/15/17 at 02: 00 Dextrose (D50w Syringe) 25 ml Q15M PRN IV DECREASED GLUCOSE; Start 04/15/17 at 02:00 Dextrose (D50w Syringe) 50 ml Q15M PRN IV DECREASED GLUCOSE; Start 04/15/17 at 02:00 Glucagon (Glucagen) 1 mg Q15M PRN IM DECREASED GLUCOSE; Start 04/15/17 at 02: 00 Glucose 15 gm 15 gm Q15M PRN BUCCAL DECREASED GLUCOSE; Start 04/15/17 at 02:00 Ferric Sodium Gluconate Complex/ Sodium Chloride (Ferrlecit/NS) 110 ml @ 110 mls/hr Q24H IVPB ; Start 04/15/17 at 11:00; Stop 04/19/17 at 11:59 Epoetin Joby (Epogen (Non Esrd/Non Oncology)) 6,000 units TuThSa@17 SC Last administered on 04/15/17 17:38; Admin Dose 6,000 UNITS; Start 04/15/17 at 17: 00 Allopurinol (Zyloprim) 100 mg DAILY PO ; Start 04/17/17 at 09:00 KALI ESTRADA Apr 16, 2017 10:02
[2017-04-16] MEDS: SOD FERRIC GLUC COMPLX 125 MG in SOD CHLORIDE 0.9% 100 ML IVPB SCH (11:00)
--- NOTE | 2017-04-16 12:43 | PN ---
Date/Time of Note Date/Time of Note DATE: 04/16/17 TIME: 12:39 Assessment/Plan VTE Prophylaxis VTE Prophylaxis Intervention: LMWH Lines/Catheters IV Catheter Type (from Nrsg): Peripheral IV Assessment/Plan Chief Complaint/Hosp Course 56 yo male wtih DMII, PAD with charcot joint from DM neuroapthy leading to fracture and osteomyelitis requiring amputation as well as acute on chronic blood loss anemia Acute on chronic blood loss anemia: - s/p PRBC transfusions, tranfsufe PRN Hgb < 8 - iron supplementation IV Osteomyelitis: - Continue vancomycin and zosyn, pending amputation DMII: - Continue basal/bolus insulin DA: - resolving nicely with fluids and resolution of sepsis PAD: - Aspirin following surgery, atorva 40 daily Dispo following BKA Problems: Subjective 24 Hr Interval Summary Free Text/Dictation Tranfused PRBCs yesterday, Hgb today is 8.7, adequate for surgery Glycemic control very good Pain controlled Exam/Review of Systems Vital Signs Vitals Vital Signs Date Time Temp Pulse Resp B/P Pulse Ox O2 Delivery O2 Flow Rate FiO2 04/16/17 07:41 98.1 66 18 114/78 98 04/15/17 01:50 Room Air 04/15/17 00:52 2.0 Intake and Output 04/15/17 04/15/17 04/16/17 14:59 22:59 06:59 Intake Total 550 ml 1100 ml 790 ml Output Total 900 ml 500 ml Balance 550 ml 200 ml 290 ml Exam Constitutional: alert, oriented, well developed Psych: nl mood/affect, no complaints Head: atraumatic, normocephalic Eyes: EOMI, PERRL, nl conjunctiva, nl lids, nl sclera ENMT: nl external ears & nose, nl lips & teeth, nl nasal mucosa & septum Neck: non-tender, supple Respiratory: clear to auscultation, normal air movement Cardiovascular: nl pulses, regular rate and rhythm Gastrointestinal: nl liver, spleen, non-tender, soft Musculoskeletal: nl extremities to inspection, nl gait and stance Extremities: normal pulses 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: NET REPAIRER II-XII intact, nl mental status, nl speech, nl strength Skin: nl turgor, No rash or lesions Lymph: nl lymph nodes Results Result Diagram: 04/16/1752504/16/17 05 Results 24 hrs Laboratory Tests Test 04/15/17 17:09 04/15/17 21:51 04/16/17 01:15 04/16/17 05:26 Bedside Glucose 282 H 146 117 109 White Blood Count 5.8 # Red Blood Count 3.41 #L Hemoglobin 8.7 #L Hematocrit 27.5 #L Mean Corpuscular Volume 80.6 L Mean Corpuscular Hemoglobin 25.5 L Mean Corpuscular Hemoglobin Concent 31.6 L Red Cell Distribution Width 16.1 H Platelet Count 489 H Mean Platelet Volume 8.8 Neutrophils % 49.3 Lymphocytes % 34.4 Monocytes % 10.8 Eosinophils % 3.8 Basophils % 1.0 Nucleated Red Blood Cells % 0.0 Neutrophils # 2.8 Lymphocytes # 2.0 Monocytes # 0.6 Eosinophils # 0.2 Basophils # 0.1 Nucleated Red Blood Cells # 0.0 Sodium Level 143 Potassium Level 4.6 Chloride Level 112 H Carbon Dioxide Level 24 Anion Gap 12 Blood Urea Nitrogen 38 #H Creatinine 1.83 H Glucose Level 110 Uric Acid 8.7 H Calcium Level 8.3 L Total Bilirubin 1.1 Direct Bilirubin 0.00 Indirect Bilirubin 1.1 Aspartate Amino Transf (AST/SGOT) 31 Alanine Aminotransferase (ALT/SGPT) 26 Alkaline Phosphatase 131 H Creatine Kinase < 20 L Total Protein 7.9 Albumin 2.5 L Globulin 5.40 H Albumin/Globulin Ratio 0.46 Test 04/16/17 05:40 04/16/17 08:04 04/16/17 11:47 Lab Scanned Report BLOOD TRANSFUSION Bedside Glucose 119 157 Medications Medications Current Medications Ondansetron HCl (Zofran Inj) 4 mg Q6H PRN IV NAUSEA AND/OR VOMITING; Start at 22:30 Acetaminophen (Tylenol Tab) 650 mg Q6H PRN PO PAIN LEVEL 1-3 OR FEVER; Start 04/14/17 at 22:30 Acetaminophen/ Hydrocodone Bitart 1 tab 1 tab Q6H PRN PO MODERATE PAIN LEVEL 4- 6; Start 04/14/17 at 22:30 Clindamycin HCl/ Dextrose (Cleocin 900 Mg/ D5W (Pmx)) 50 ml @ 50 mls/hr Q6 IVPB Last administered on 04/16/17t 05:24; Admin Dose 50 MLS/HR; Start 04/15/17 at 00:30 Diagnostic Test (Pha) (Accu-Chek) 1 ea 02 XX ; Start 04/15/17 at 02:00 Insulin Aspart (Novolog Insulin Pen) NOVOLOG *MILD* ALGORI... Q4 SC Last administered on 04/16/17 12:33; Admin Dose 1 UNIT; Start 04/15/17 at 01:00 Atorvastatin Calcium 40 mg 40 mg QHS PO Last administered on 04/15/17 21:55; Admin Dose 40 MG; Start 04/15/17 at 21:00 Piperacillin Sod/ Tazobactam Sod (Zosyn 2.25gm/ 50ml (Pmx)) 50 ml @ 100 mls/hr Q8 IVPB Last administered on 04/16/17 06:09; Admin Dose 100 MLS/HR; Start at 02:00 Miscellaneous Information 1 ea NOTE XX ; Start 04/15/17 at 02:00 Glucose (Glutose) 15 gm Q15M PRN PO DECREASED GLUCOSE; Start 04/15/17 at 02:00 Glucose (Glutose) 22.5 gm Q15M PRN PO DECREASED GLUCOSE; Start 04/15/17 at 02: 00 Dextrose (D50w Syringe) 25 ml Q15M PRN IV DECREASED GLUCOSE; Start 04/15/17 at 02:00 Dextrose (D50w Syringe) 50 ml Q15M PRN IV DECREASED GLUCOSE; Start 04/15/17 at 02:00 Glucagon (Glucagen) 1 mg Q15M PRN IM DECREASED GLUCOSE; Start 04/15/17 at 02: 00 Glucose 15 gm 15 gm Q15M PRN BUCCAL DECREASED GLUCOSE; Start 04/15/17 at 02:00 Ferric Sodium Gluconate Complex/ Sodium Chloride (Ferrlecit/NS) 110 ml @ 110 mls/hr Q24H IVPB ; Start 04/15/17 at 11:00; Stop 04/19/17 at 11:59 Epoetin Joby (Epogen (Non Esrd/Non Oncology)) 6,000 units TuThSa@17 SC Last administered on 04/15/17 17:38; Admin Dose 6,000 UNITS; Start 04/15/17 at 17: 00 Allopurinol (Zyloprim) 100 mg DAILY PO ; Start 04/17/17 at 09:00 HUYEN MILES MD Apr 16, 2017 12:43
[2017-04-16 14:00] VITALS: BP 114/76; RESP 18
[2017-04-16 19:34] VITALS: BP 111/60; RESP 18
[2017-04-16] MEDS: ATORVASTATIN 40 MG TAB PO SCH (21:03)
[2017-04-17] MEDS: INSULIN ASPART [NOVOLOG] 3 ML PEN SC SCH ×5 (01:18→17:00)
[2017-04-17 01:57] VITALS: BP 126/74; PULSE 80; RESP 18
[2017-04-17] MEDS: ACCU-CHEK XX SCH (02:00)
--- NOTE | 2017-04-17 03:44 | PN ---
DATE: 04/16/2017 SUBJECTIVE DATA: The patient has not decided in his mind about the recommended BKA amputation. No pain from the right foot and ankle may be part of the reason he could ignore the situation. He is also refusing IV antibiotics. Need for amputation was again discussed with the patient. He will considered further and make a decision. Dictated By: In Catia Gao MD /[email or web address] /Document#: [id number]
[2017-04-17] MEDS: CLINDAMYCIN 900 MG/D5W (PMX) 50 ML IVPB SCH ×2 (05:36→11:29)
[2017-04-17] MEDS: PIPER-TAZO 2.25 GM (PMX) 50 ML IVPB SCH ×2 (05:36→14:00)
[2017-04-17 07:31] VITALS: BP_SYST 91; BP_DIAS 23; BP_DIAS 53; RESP 18
--- NOTE | 2017-04-17 08:38 | CONS ---
Date/Time of Note Date/Time of Note DATE: 04/17/17 TIME: 08:36 Consult Date/Type/Reason Admit Date/Time Apr 14, 2017 at 22:04 Initial Consult Date 04/15/17 Type of Consultation: card Ordering Provider: MARCO ANTONIO MCDONALD MD Subjective cardiology follow up note: S: D/W staff pt with no chest pain or pressure. no PND orthopnea + foot pain he has refused amputation which was recommended by ortho. O: General: no acute distress HEENT: NC/AT. pupils are equal. round. NECK: NO JVD. no stridor. CV: RRR. systolic murmur; no gallop or rubs. PULM: no wheezing or rhonchi. GI: SOFT, NT, ND, no rebound or guarding Extremity: S/P L BKA. R leg in cast. neuro: awake and alert, OX3. Psych: calm and pleasant rectal: deferred : normal male. ECG NSR. nonspecific T wave abn Objective Vital Signs Date Time Temp Pulse Resp B/P Pulse Ox O2 Delivery O2 Flow Rate FiO2 04/17/17 07:31 97.9 64 18 91/23 98 04/17/17 01:57 Room Air 04/15/17 00:52 2.0 Intake and Output 04/16/17 04/16/17 04/17/17 15:00 23:00 07:00 Intake Total 720 ml Output Total 600 ml Balance 120 ml Results/Medications Result Diagram: 04/16/17 0504/16/17 0526 Results 24 hrs Laboratory Tests Test 04/16/17 11:47 04/16/17 17:25 04/16/17 21:02 04/17/17 01:15 Bedside Glucose 157 122 154 158 Test 04/17/17 05:33 04/17/17 08:28 Bedside Glucose 174 128 Medications Current Medications Ondansetron HCl (Zofran Inj) 4 mg Q6H PRN IV NAUSEA AND/OR VOMITING; Start at 22:30 Acetaminophen (Tylenol Tab) 650 mg Q6H PRN PO PAIN LEVEL 1-3 OR FEVER; Start 04/14/17 at 22:30 Acetaminophen/ Hydrocodone Bitart 1 tab 1 tab Q6H PRN PO MODERATE PAIN LEVEL 4- 6; Start 04/14/17 at 22:30 Clindamycin HCl/ Dextrose (Cleocin 900 Mg/ D5W (Pmx)) 50 ml @ 50 mls/hr Q6 IVPB Last administered on 04/16/17 05:24; Admin Dose 50 MLS/HR; Start 04/15/17 at 00:30 Diagnostic Test (Pha) (Accu-Chek) 1 ea 02 XX ; Start 04/15/17 at 02:00 Insulin Aspart (Novolog Insulin Pen) NOVOLOG *MILD* ALGORI... Q4 SC Last administered on 04/17/17 05:36; Admin Dose 1 UNIT; Start 04/15/17 at 01:00 Atorvastatin Calcium 40 mg 40 mg QHS PO Last administered on 04/16/17 21:03; Admin Dose 40 MG; Start 04/15/17 at 21:00 Piperacillin Sod/ Tazobactam Sod (Zosyn 2.25gm/ 50ml (Pmx)) 50 ml @ 100 mls/hr Q8 IVPB Last administered on 04/16/17 06:09; Admin Dose 100 MLS/HR; Start at 02:00 Miscellaneous Information 1 ea NOTE XX ; Start 04/15/17 at 02:00 Glucose (Glutose) 15 gm Q15M PRN PO DECREASED GLUCOSE; Start 04/15/17 at 02:00 Glucose (Glutose) 22.5 gm Q15M PRN PO DECREASED GLUCOSE; Start 04/15/17 at 02: 00 Dextrose (D50w Syringe) 25 ml Q15M PRN IV DECREASED GLUCOSE; Start 04/15/17 at 02:00 Dextrose (D50w Syringe) 50 ml Q15M PRN IV DECREASED GLUCOSE; Start 04/15/17 at 02:00 Glucagon (Glucagen) 1 mg Q15M PRN IM DECREASED GLUCOSE; Start 04/15/17 at 02: 00 Glucose 15 gm 15 gm Q15M PRN BUCCAL DECREASED GLUCOSE; Start 04/15/17 at 02:00 Ferric Sodium Gluconate Complex/ Sodium Chloride (Ferrlecit/NS) 110 ml @ 110 mls/hr Q24H IVPB ; Start 04/15/17 at 11:00; Stop 04/19/17 at 11:59 Epoetin Joby (Epogen (Non Esrd/Non Oncology)) 6,000 units TuThSa@17 SC Last administered on 11/28/17at 17:38; Admin Dose 6,000 UNITS; Start 04/15/17 at 17: 00 Allopurinol (Zyloprim) 100 mg DAILY PO ; Start 04/17/17 at 09:00 Assessment/Plan Chief Complaint/Hosp Course CV preop evaluation gas gangrene and open fracture of right ankle DM HTN dyslipidemia severe anemia. recommendations: transfusionsprn. it will be deferred to IM team Diabetes is being managed as per internal medicine. Continue aggressive risk factor modification. antibiotic management as per internal medicine f/u with ortho rec. Thank you for his referral. We will continue to follow along with you. MARIAN REED MD [facility] Problems: MARIAN REED MD Apr 17, 2017 08:37
[2017-04-17] MEDS: ALLOPURINOL 100 MG TAB PO SCH (09:47)
[2017-04-17] MEDS: SOD FERRIC GLUC COMPLX 125 MG in SOD CHLORIDE 0.9% 100 ML IVPB SCH (11:00)
[2017-04-17] MEDS ORDERED: LIDOCAINE 1% (MPF) 5 ML VIAL SC ONE (12:00)
--- NOTE | 2017-04-17 13:03 | PN ---
Date/Time of Note Date/Time of Note DATE: 04/17/17 TIME: 13:01 Assessment/Plan VTE Prophylaxis VTE Prophylaxis Intervention: LMWH Lines/Catheters IV Catheter Type (from Nrs): Peripheral IV Assessment/Plan Chief Complaint/Hosp Course 56 yo male wtih DMII, PAD with charcot joint from DM neuroapthy leading to fracture and osteomyelitis as well as acute on chronic blood loss anemia Acute on chronic blood loss anemia: - s/p PRBC transfusions, tranfsufe PRN Hgb < 8 - iron supplementation IV Osteomyelitis: - Continue vancomycin and zosyn - Place PICC, ID consult for shelter IV abx DMII: - Continue basal/bolus insulin DA: - resolving nicely with fluids and resolution of sepsis PAD: - Aspirin 81, atorva 40 daily Discharge home with IV abx Problems: Subjective 24 Hr Interval Summary Free Text/Dictation Does not want amputation despite understanding risk of , infection, sepsis , etc 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 IV abx via PICC Exam/Review of Systems Vital Signs Vitals Vital Signs Date Time Temp Pulse Resp B/P Pulse Ox O2 Delivery O2 Flow Rate FiO2 04/17/17 07:31 97.9 64 18 91/23 98 04/17/17 01:57 Room Air 04/15/17 00:52 2.0 Intake and Output 04/16/17 04/16/17 04/17/17 15:00 23:00 07:00 Intake Total 720 ml Output Total 600 ml Balance 120 ml Exam Constitutional: alert, oriented, well developed Psych: nl mood/affect, no complaints Head: atraumatic, normocephalic Eyes: EOMI, PERRL, nl conjunctiva, nl lids, nl sclera ENMT: nl external ears & nose, nl lips & teeth, nl nasal mucosa & septum Neck: non-tender, supple Respiratory: clear to auscultation, normal air movement Cardiovascular: nl pulses, regular rate and rhythm Gastrointestinal: nl liver, spleen, non-tender, soft Musculoskeletal: nl extremities to inspection, nl gait and stance Extremities: normal pulses 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: 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 II-XII intact, nl mental status, nl speech, nl strength Skin: nl turgor, No rash or lesions Lymph: nl lymph nodes Results Result Diagram: 04/16/17 0526 04/16/1726 Results 24 hrs Laboratory Tests Test 04/16/17 17:25 04/16/17 21:02 04/17/17 01:15 04/17/17 05:33 Bedside Glucose 122 154 158 174 Test 04/17/17 08:28 04/17/17 12:42 Bedside Glucose 128 167 Medications Medications Current Medications Ondansetron HCl (Zofran Inj) 4 mg Q6H PRN IV NAUSEA AND/OR VOMITING; Start at 22:30 Acetaminophen (Tylenol Tab) 650 mg Q6H PRN PO PAIN LEVEL 1-3 OR FEVER; Start 04/14/17 at 22:30 Acetaminophen/ Hydrocodone Bitart 1 tab 1 tab Q6H PRN PO MODERATE PAIN LEVEL 4- 6; Start 04/14/17 at 22:30 Clindamycin HCl/ Dextrose (Cleocin 900 Mg/ D5W (Pmx)) 50 ml @ 50 mls/hr Q6 IVPB Last administered on 04/16/17 05:24; Admin Dose 50 MLS/HR; Start 04/15/17 at 00:30 Diagnostic Test (Pha) (Accu-Chek) 1 ea 02 XX ; Start 04/15/17 at 02:00 Insulin Aspart (Novolog Insulin Pen) NOVOLOG *MILD* ALGORI... Q4 SC Last administered on 04/17/17 12:47; Admin Dose 1 UNIT; Start 04/15/17 at 01:00 Atorvastatin Calcium 40 mg 40 mg QHS PO Last administered on 04/16/17 21:03; Admin Dose 40 MG; Start 04/15/17 at 21:00 Piperacillin Sod/ Tazobactam Sod (Zosyn 2.25gm/ 50ml (Pmx)) 50 ml @ 100 mls/hr Q8 IVPB Last administered on 04/16/17 06:09; Admin Dose 100 MLS/HR; Start at 02:00 Miscellaneous Information 1 ea NOTE XX ; Start 04/15/17 at 02:00 Glucose (Glutose) 15 gm Q15M PRN PO DECREASED GLUCOSE; Start 04/15/17 at 02:00 Glucose (Glutose) 22.5 gm Q15M PRN PO DECREASED GLUCOSE; Start 04/15/17 at 02: 00 Dextrose (D50w Syringe) 25 ml Q15M PRN IV DECREASED GLUCOSE; Start 04/15/17 at 02:00 Dextrose (D50w Syringe) 50 ml Q15M PRN IV DECREASED GLUCOSE; Start 04/15/17 at 02:00 Glucagon (Glucagen) 1 mg Q15M PRN IM DECREASED GLUCOSE; Start 04/15/17 at 02: 00 Glucose 15 gm 15 gm Q15M PRN BUCCAL DECREASED GLUCOSE; Start 04/15/17 at 02:00 Ferric Sodium Gluconate Complex/ Sodium Chloride (Ferrlecit/NS) 110 ml @ 110 mls/hr Q24H IVPB ; Start 04/15/17 at 11:00; Stop 04/19/17 at 11:59 Epoetin Joby (Epogen (Non Esrd/Non Oncology)) 6,000 units TuThSa@17 SC Last administered on 04/15/17 17:38; Admin Dose 6,000 UNITS; Start 04/15/17 at 17: 00 Allopurinol (Zyloprim) 100 mg DAILY PO Last administered on 04/17/17 09:47; Admin Dose 100 MG; Start 04/17/17 at 09:00 HUYEN MILES MD Apr 17, 2017 13:03
[2017-04-17 13:19] VITALS: BP 120/72; PULSE 71; RESP 12
--- NOTE | 2017-04-17 16:10 | CONS ---
Date/Time of Note Date/Time of Note DATE: 04/17/17 TIME: 16:09 Assessment/Plan Assessment/Plan Additional Assessment/Plan 1. Non Oliguric DA on CKD possibley stage III due to ATN and prerenal azotemia 2. Severe anemia s/p PRBC 3. 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 HTN 5. HL 6. Right Ankle Fracture 7. Hyperuricemia without gout Plan: Cr improved to 1.83 with IVF Hydration- no labs today to review yet - continue IVF NS at 75 cc/hr US renal unremarkable allopurinol 100mg po daily for hyperuricemia need better Glycemic control pt is cleared to have ankle surgery from renal stand point of view I will continue to follow up on patient Consultation Date/Type/Reason Admit Date/Time Apr 14, 2017 at 22:04 Initial Consult Date 04/15/17 Type of Consultation: NEPHROLOGY Referring Provider: MARCO ANTONIO MCDONALD MD Exam/Review of Systems Vital Signs Vitals Vital Signs Date Time Temp Pulse Resp B/P Pulse Ox O2 Delivery O2 Flow Rate FiO2 04/17/17 13:19 97.9 71 12 120/72 100 Room Air 04/15/17 00:52 2.0 Intake and Output 04/16/17 04/16/17 04/17/17 14:59 22:59 06:59 Intake Total 720 ml Output Total 600 ml Balance 120 ml Exam Constitutional: alert Respiratory: clear to auscultation, diminished breath sounds, normal air movement Cardiovascular: nl pulses, regular rate and rhythm Gastrointestinal: non-tender, soft Musculoskeletal: nl extremities to inspection, nl gait and stance Extremities: normal pulses, other (right ankle swelling +) 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: 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 intact, nl mental status Skin: nl turgor, rash or lesions Results Result Diagram: 04/16/1726 04/16/1726 Results 24 hrs Laboratory Tests Test 04/16/17 17:25 04/16/17 21:02 04/17/17 01:15 04/17/17 05:33 Bedside Glucose 122 154 158 174 Test 04/17/17 08:28 04/17/17 12:42 Bedside Glucose 128 167 Medications Medications Current Medications Ondansetron HCl (Zofran Inj) 4 mg Q6H PRN IV NAUSEA AND/OR VOMITING; Start at 22:30 Acetaminophen (Tylenol Tab) 650 mg Q6H PRN PO PAIN LEVEL 1-3 OR FEVER; Start 04/14/17 at 22:30 Acetaminophen/ Hydrocodone Bitart 1 tab 1 tab Q6H PRN PO MODERATE PAIN LEVEL 4- 6; Start 04/14/17 at 22:30 Clindamycin HCl/ Dextrose (Cleocin 900 Mg/ D5W (Pmx)) 50 ml @ 50 mls/hr Q6 IVPB Last administered on 04/16/17 05:24; Admin Dose 50 MLS/HR; Start 04/15/17 at 00:30 Diagnostic Test (Pha) (Accu-Chek) 1 ea 02 XX ; Start 04/15/17 at 02:00 Insulin Aspart (Novolog Insulin Pen) NOVOLOG *MILD* ALGORI... Q4 SC Last administered on 04/17/17 12:47; Admin Dose 1 UNIT; Start 04/15/17 at 01:00 Atorvastatin Calcium 40 mg 40 mg QHS PO Last administered on 04/16/17 21:03; Admin Dose 40 MG; Start 04/15/17 at 21:00 Piperacillin Sod/ Tazobactam Sod (Zosyn 2.25gm/ 50ml (Pmx)) 50 ml @ 100 mls/hr Q8 IVPB Last administered on 04/16/17 06:09; Admin Dose 100 MLS/HR; Start at 02:00 Miscellaneous Information 1 ea NOTE XX ; Start 04/15/17 at 02:00 Glucose (Glutose) 15 gm Q15M PRN PO DECREASED GLUCOSE; Start 04/15/17 at 02:00 Glucose (Glutose) 22.5 gm Q15M PRN PO DECREASED GLUCOSE; Start 04/15/17 at 02: 00 Dextrose (D50w Syringe) 25 ml Q15M PRN IV DECREASED GLUCOSE; Start 04/15/17 at 02:00 Dextrose (D50w Syringe) 50 ml Q15M PRN IV DECREASED GLUCOSE; Start 04/15/17 at 02:00 Glucagon (Glucagen) 1 mg Q15M PRN IM DECREASED GLUCOSE; Start 04/15/17 at 02: 00 Glucose 15 gm 15 gm Q15M PRN BUCCAL DECREASED GLUCOSE; Start 04/15/17 at 02:00 Ferric Sodium Gluconate Complex/ Sodium Chloride (Ferrlecit/NS) 110 ml @ 110 mls/hr Q24H IVPB ; Start 04/15/17 at 11:00; Stop 04/19/17 at 11:59 Epoetin Joby (Epogen (Non Esrd/Non Oncology)) 6,000 units TuThSa@17 SC Last administered on 04/15/17 17:38; Admin Dose 6,000 UNITS; Start 04/15/17 at 17: 00 Allopurinol (Zyloprim) 100 mg DAILY PO Last administered on 04/17/17 09:47; Admin Dose 100 MG; Start 04/17/17 at 09:00 KIMBERLY CONNOR MD Apr 17, 2017 16:10
[2017-04-17] MEDS ORDERED: VANCOMYCIN IV PER PHARMACY XX SCH (16:30)
[2017-04-17] MEDS: EPOETIN 3000 UNITS/ML (NON ESRD/NON ONCOLOGY) SC SCH (17:36)
--- NOTE | 2017-04-17 17:54 | RADRPT ---
PROCEDURE: XR portable chest CLINICAL INDICATION: PICC line placement TECHNIQUE: Portable supine chest radiograph COMPARISON: Portable chest radiograph 04/14/2017 FINDINGS: Interval placement of left PICC catheter with the tip projected in the right atrium and oriented inf eromedially. Portions of the left hemithorax are not included on this study. No other significant interval changes seen. IMPRESSION: 1. Interval placement of left PICC catheter with the tip projected in the right atrium and oriented inferomedially RPTAT: TT Physician Robert Date Time Electronically viewed and signed by Chidi Alexander Physician on 04/17/2017 17:54 JS/
[2017-04-17] MEDS ORDERED: VANCOMYCIN 1.5 GM in SOD CHLORIDE 0.9% 250 ML IVPB SCH (18:30)
[2017-04-17] MEDS ORDERED: SOD CHLORIDE 0.9% 100 ML ONE (19:35)
--- NOTE | 2017-04-17 19:35 | RADRPT ---
PROCEDURE: Ultrasound guidance for placement of needle in left upper extremity vein. CLINICAL INDICATION: Venous access. TECHNIQUE: Limited sonography of the left upper extremity was performed. Ultrasound images were recorded and s tored in the patient's medical record. COMPARISON: None. FINDINGS: The ultrasound images demonstrate a patent left upper extremity vein. The PICC line was inserted by the PICC line nurse. IMPRESSION: 1. Ultrasound guidance for a needle placement in a left upper extremity vein. 2. The left upper extremity vein is patent. RPTAT: QQ .Augusto Camacho MD, MD Date Time Electronically viewed and signed by .Augusto Camacho MD, MD on 04/17/2017 19:34 .R/
[2017-04-17 20:00] VITALS: BP 135/86; RESP 20
--- NOTE | 2017-04-17 20:57 | CONS ---
DATE OF ADMISSION: 04/14/2017 DATE OF CONSULTATION: 04/17/2017 TYPE OF CONSULTATION: Infectious disease. REASON FOR CONSULTATION: Antibiotic management. HISTORY OF PRESENT ILLNESS: Tierra Avalos is a 56-year-old white male who is admitted with right lower extremity infection and is being seen for antibiotic management. His past problems include: 1. Adult-onset diabetes mellitus. 2. Status post left BKA. 3. Diabetic neuropathy. 4. Hyperlipidemia. 5. Chronic right foot plantar ulcer and chronic right foot osteomyelitis. The patient was attempting to walk even though he has a left BKA. He twisted his right ankle 2 week s prior to admission. He heard a pop at the time. From that point on, he has been taken care of by a home health nurse. He had some bleeding from the right lateral malleolus and also from the heel. He has been having daily dressings. Has not had an x-ray or any exam prior to admission. The pat keli also has right foot Charcot joint. He is followed at the [facility]. As well, he has right osteomyeli tis and plantar ulcer of the right foot. PAST MEDICAL HISTORY: Operations as outlined. FAMILY HISTORY: Noncontributory. SOCIAL HISTORY: He does not smoke, drink or abuse drugs. ALLERGIES: NONE TO PENICILLIN, SULFA OR FOODS. MEDICATIONS: Per chart. REVIEW OF SYSTEMS: As per HPI. PHYSICAL EXAMINATION: GENERAL: The patient is lying in bed, lethargic but arousable, in no acute distress. VITAL SIGNS: Stable. He is afebrile. SKIN: Without generalized rash. HEENT: Within normal limits. NECK: Supple. LYMPH NODES: None palpable. CHEST: Decreased breath sounds at the bases. HEART: Without murmur or gallop. ABDOMEN: Soft, nontender, without organosplenomegaly or masses. EXTREMITIES: He has a left BKA. Right lower extremity is wrapped at the present time. RECTAL AND GENITAL: Deferred. NEUROLOGICAL: No focal neurological abnormalities. HOSPITAL COURSE: The patient currently refuses to have an amputation. His white count is 5.8 on th e 29th, H and H 8.7 and 27.5, platelet count 489,000. IMAGING: A CT scan of the lower extremity shows extensive fragmentation and erosive changes about t he mid and hindfoot, likely representing neuropathic joint disease. There are changes suggestive of superimposed osteomyelitis with surrounding increased soft tissue. Fluid and gas consistent with g as gangrene. Anterior tibiotalar dislocation. A chest x-ray shows no acute infiltrate. A tibia an d fibula x-ray shows a complex fracture-dislocation of the foot and ankle joint, with fracture defor mity of the posterior and medial tibia and likely distal fibula. CT correlation is recommended. Pl ease refer to dedicated x-ray series of the right ankle for detailed description of ankle fracture. Ankle x-ray: Extensive fragmentation is noted, erosion of the posterior malleolus. Renal ultrasou nd unremarkable. IMPRESSION AND PLAN: The patient has been seen by a number of different physicians, including Dr. Yulia Jaimes in renal and Dr. Jimmy Gao who notes that he is not sure the patient wants a below-knee amputation. He is refusing intravenous antibiotics. The patient was seen by Dr. King. Acute o n chronic blood loss anemia, osteomyelitis. The patient is on vancomycin and Zosyn. He wants an in fectious disease consult for long-term intravenous antibiotics. We are probably not going to be abl e to cure this osteomyelitis, but I would give him 6 to 8 weeks of intravenous antibiotics with vanc omycin and I would switch him from clindamycin, which was stopped, and change him to Levaquin from Z osyn. I would put him on vancomycin alone. I would treat him for 6 to 8 weeks and then possibly pu t him on Bactrim-DS daily indefinitely, probably for as long as his leg lasts. I will dictate my fi ndings to the hospitalist and to the aforementioned consultants. Dictated By: NAVEEN ROBLERO MD, JD/AMY Conf#: [id number] DID#: [id number] CC: FABIANO TA MD;*EndCC*
[2017-04-17] MEDS: Insulin NOVOLOG SS MILD Algorithm (SS with meals and bedtime) SC SCH (21:00)
[2017-04-17] MEDS ORDERED: INSULIN ASPART [NOVOLOG] 3 ML PEN SC SCH (21:00)
[2017-04-17] MEDS: ATORVASTATIN 40 MG TAB PO SCH (21:01)
[2017-04-18 02:00] VITALS: BP 111/76; RESP 20
[2017-04-18] MEDS: ACCU-CHEK XX SCH (02:00)
[2017-04-18 06:10] LABS: BASOPHIL # 0.1 10^3/ul (0.0-0.1); BASOPHILS % 0.8 % (0.0-2.0); EOSINOPHILS # 0.3 10^3/ul (0.0-0.5); EOSINOPHILS % 4.1 % (0.0-7.0); HEMOGLOBIN 8.9 g/dl (14.0-18.0); LYMPHOCYTES # 2.5 10^3/ul (0.8-2.9); LYMPHOCYTES % 38.8 % (15.0-51.0); MEAN CORPUSCULAR HEMOGLOBIN 25.1 pg (29.0-33.0); MEAN CORPUSCULAR HGB CONC 30.7 g/dl (32.0-37.0); MEAN CORPUSCULAR VOLUME 81.9 fl (82.0-101.0); MONOCYTE # 0.5 10^3/ul (0.3-0.9); MONOCYTES % 7.7 % (0.0-11.0); NEUTROPHILS % 47.5 % (39.0-77.0); PLATELET COUNT 465 10^3/UL (140-415); RED BLOOD COUNT 3.54 10^6/ul (4.70-6.10); WHITE BLOOD COUNT 6.4 10^3/ul (4.8-10.8)
[2017-04-18] MEDS ORDERED: VANCOMYCIN 1 GM in NS 250 ML IVPB SCH (06:30)
[2017-04-18 06:42] LABS: INR 1.22; PROTIME 15.6 Sec (11.9-14.9); PT RATIO 1.2
[2017-04-18 06:43] LABS: PARTIAL THROMBOPLASTIN TIME 35.7 Sec (25.0-35.0)
[2017-04-18 07:01] LABS: ALBUMIN 2.6 g/dl (3.3-4.9); ALBUMIN/GLOBULIN RATIO 0.48; BILIRUBIN,INDIRECT 0.1 mg/dl (0-1.1); BILIRUBIN,TOTAL 0.1 mg/dl (0.2-1.3); CALCIUM 8.3 mg/dl (8.4-10.2); CREATININE 1.19 mg/dl (0.61-1.24); POTASSIUM 4.3 mmol/L (3.5-5.1)
[2017-04-18 07:38] VITALS: BP 116/78; RESP 18
[2017-04-18] MEDS: Insulin NOVOLOG SS MILD Algorithm (SS with meals and bedtime) SC SCH ×3 (08:00→17:41)
[2017-04-18] MEDS: ALLOPURINOL 100 MG TAB PO SCH (09:22)
--- NOTE | 2017-04-18 10:24 | CONS ---
Date/Time of Note Date/Time of Note DATE: 04/18/17 TIME: 10:23 Consult Date/Type/Reason Admit Date/Time Apr 14, 2017 at 22:04 Initial Consult Date 04/15/17 Type of Consultation: card Ordering Provider: MARCO ANTONIO MCDONALD MD Subjective cardiology follow up note: S: D/W staff pt with no chest pain or pressure. no PND orthopnea + foot pain he is still refusing amputation which was recommended by ortho. O: General: no acute distress HEENT: NC/AT. pupils are equal. round. NECK: NO JVD. no stridor. CV: RRR. systolic murmur; no gallop or rubs. PULM: no wheezing or rhonchi. GI: SOFT, NT, ND, no rebound or guarding Extremity: S/P L BKA. R leg in cast. neuro: awake and alert, OX3. Psych: calm and pleasant rectal: deferred : normal male. ECG NSR. nonspecific T wave abn Objective Vital Signs Date Time Temp Pulse Resp B/P Pulse Ox O2 Delivery O2 Flow Rate FiO2 04/18/17 07:38 98.2 66 18 116/78 98 04/17/17 13:19 Room Air 04/15/17 00:52 2.0 Intake and Output 04/17/17 04/17/17 04/18/17 15:00 23:00 07:00 Intake Total 880 ml 250 ml Output Total 600 ml Balance 280 ml 250 ml Results/Medications Result Diagram: 04/18/17 0524 04/18/17 0524 Results 24 hrs Laboratory Tests Test 04/17/17 12:42 04/17/17 17:32 04/17/17 21:00 04/18/17 05:24 Bedside Glucose 167 136 148 White Blood Count 6.4 Red Blood Count 3.54 L Hemoglobin 8.9 L Hematocrit 29.0 L Mean Corpuscular Volume 81.9 L Mean Corpuscular Hemoglobin 25.1 L Mean Corpuscular Hemoglobin Concent 30.7 L Red Cell Distribution Width 16.0 H Platelet Count 465 H Mean Platelet Volume 9.0 Neutrophils % 47.5 Lymphocytes % 38.8 Monocytes % 7.7 Eosinophils % 4.1 Basophils % 0.8 Nucleated Red Blood Cells % 0.0 Neutrophils # 3.0 Lymphocytes # 2.5 Monocytes # 0.5 Eosinophils # 0.3 Basophils # 0.1 Nucleated Red Blood Cells # 0.0 Prothrombin Time 15.6 H Prothrombin Time Ratio 1.2 INR International Normalized Ratio 1.22 Activated Partial Thromboplast Time 35.7 H Sodium Level 142 Potassium Level 4.3 Chloride Level 111 H Carbon Dioxide Level 23 Anion Gap 12 Blood Urea Nitrogen 23 #H Creatinine 1.19 Glucose Level 118 Calcium Level 8.3 L Total Bilirubin 0.1 L Direct Bilirubin 0.00 Indirect Bilirubin 0.1 Aspartate Amino Transf (AST/SGOT) 38 Alanine Aminotransferase (ALT/SGPT) 31 Alkaline Phosphatase 131 H Total Protein 8.0 Albumin 2.6 L Globulin 5.40 H Albumin/Globulin Ratio 0.48 Test 04/18/17 07:59 Bedside Glucose 112 Medications Current Medications Ondansetron HCl (Zofran Inj) 4 mg Q6H PRN IV NAUSEA AND/OR VOMITING; Start at 22:30 Acetaminophen (Tylenol Tab) 650 mg Q6H PRN PO PAIN LEVEL 1-3 OR FEVER; Start 04/14/17 at 22:30 Acetaminophen/ Hydrocodone Bitart ([place] (5/325)) 1 tab Q6H PRN PO MODERATE PAIN LEVEL 4-6; Start 04/14/17 at 22:30 Diagnostic Test (Pha) (Accu-Chek) 1 ea 02 XX ; Start 04/15/17 at 02:00 Atorvastatin Calcium (Lipitor) 40 mg QHS PO Last administered on 04/17/17t 21: 01; Admin Dose 40 MG; Start 04/15/17 at 21:00 Miscellaneous Information 1 ea NOTE XX ; Start 04/15/17 at 02:00 Glucose (Glutose) 15 gm Q15M PRN PO DECREASED GLUCOSE; Start 04/15/17 at 02:00 Glucose (Glutose) 22.5 gm Q15M PRN PO DECREASED GLUCOSE; Start 04/15/17 at 02: 00 Dextrose (D50w Syringe) 25 ml Q15M PRN IV DECREASED GLUCOSE; Start 04/15/17 at 02:00 Dextrose (D50w Syringe) 50 ml Q15M PRN IV DECREASED GLUCOSE; Start 04/15/17 at 02:00 Glucagon (Glucagen) 1 mg Q15M PRN IM DECREASED GLUCOSE; Start 04/15/17 at 02: 00 Glucose 15 gm 15 gm Q15M PRN BUCCAL DECREASED GLUCOSE; Start 04/15/17 at 02:00 Ferric Sodium Gluconate Complex/ Sodium Chloride (Ferrlecit/NS) 110 ml @ 110 mls/hr Q24H IVPB ; Start 04/15/17 at 11:00; Stop 04/19/17 at 11:59 Epoetin Joby (Epogen (Non Esrd/Non Oncology)) 6,000 units TuThSa@17 SC Last administered on 04/17/17 17:36; Admin Dose 6,000 UNITS; Start 04/15/17 at 17: 00 Allopurinol 100 mg 100 mg DAILY PO Last administered on 04/18/17 09:22; Admin Dose 100 MG; Start 04/17/17 at 09:00 Vancomycin HCl/ Sodium Chloride (Vancocin/NS) 250 ml @ 83.333 mls/ hr Q24H IVPB ; Start 04/18/17 at 20:00 IV Flush (NS 10 ml) 10 ml PRN PRN IV IV PROTOCOL; Start 04/17/17 at 19:30 Assessment/Plan Chief Complaint/Hosp Course CV preop evaluation gas gangrene and open fracture of right ankle DM HTN dyslipidemia severe anemia. recommendations: transfusions prn. it will be deferred to IM team Diabetes is being managed as per internal medicine. Continue aggressive risk factor modification. antibiotic management as per internal medicine f/u with ortho rec. will sign off and f/u prn since pt is refusing any surgery Thank you for his referral. We will continue to follow along with you as needed. MARIAN REED MD [facility] Problems: MARIAN REED MD Apr 18, 2017 10:24
[2017-04-18] MEDS ORDERED: VANCOMYCIN 750 MG in DEXTROSE 5% 150 ML IVPB SCH (11:30)
[2017-04-18] MEDS: SOD FERRIC GLUC COMPLX 125 MG in SOD CHLORIDE 0.9% 100 ML IVPB SCH (11:32)
[2017-04-18] MEDS ORDERED: SULF1TAB31 PO (12:16)
--- NOTE | 2017-04-18 12:18 | PDOCDIS ---
Discharge Instructions DIAGNOSIS Discharge Diagnosis Osteomyelitis CONDITION Patient Condition: Fair FOLLOW UP/APPOINTMENTS Follow-up Plan Follow up with your coating machine helper for further care You are being discharged to take IV antibiotics (vancomycin) at home for 6 weeks and Bactrim which is a pill It is very improtant to understand your infection will likely be present for life and is at risk of progressing. Return to the hospital immediately if you have any fevers or any systemic symptoms. It is crucial to keep your wound clean and dressed. HUYEN MILES MD Apr 18, 2017 12:18
--- NOTE | 2017-04-18 14:09 | DS ---
Date/Time of Note Date/Time of Note DATE: 04/18/17 TIME: 14:09 Discharge Summary Admission/Discharge Info Admit Date/Time Apr 14, 2017 at 22:04 Discharge Date/Time Discharge Diagnosis Osteomyelitis Patient Condition: Stable Hospital Course The patient was found to have DA with creatinine to 3. This resolved to baseline with IV fluids "CT of his LE was performed showing Extensive fragmentation and erosive changes about the mid and hind foot likely represents neuropathic joint disease. There are changes suggestive of superimposed osteomyelitis with surrounding increased soft tissue, fluid and gas concerning for gas gangrene. Anterior tibiotalar dislocation." He was treated with vancomycin, and zosyn with improvement of sepsis. Dr Gao from [facility] was consulted who recommended amputation. The patient refused this after extensive discussion. He prefers to received institution director antibiotics and preserve his leg as long as he can, accepting the risk of sepsis, infection, , etc. He was seen by ID who recommended institution director vancomycin and bactrim. He was also found to have acute blood loss anemia and was transfused three units of PRBCs. H/H remainded stable. Source of bleeding likely his foot wound. He will follow up in clinic with his doctors at the [facility], but has information to make appointments with Dr Joy here and podiatry here if he chooses to. Home Meds Reported Medications Insulin Glargine* (Lantus*) 100 Unit/Ml Soln, 30 UNIT SC QHS, #1 VIAL 04/15/17 Metformin* (Glucophage*) 1,000 Mg Tablet, 1000 MG PO BID, #60 TAB 04/15/17 Atorvastatin* (Atorvastatin*) 40 Mg Tablet, 40 MG PO QHS, #30 TAB 04/14/17 Glipizide* (Glipizide*) 10 Mg Tablet, 10 MG PO AC BREAKFAST, TAB 04/14/17 Aspirin* (Aspirin* EC) 81 Mg Tablet., 81 MG PO DAILY, TAB 04/14/17 Lisinopril* (Lisinopril*) 10 Mg Tablet, 10 MG PO DAILY, #30 TAB 04/14/17 Follow-up Plan Follow up with your loss prevention research engineer for further care You are being discharged to take IV antibiotics (vancomycin) at home for 6 weeks and Bactrim which is a pill It is very improtant to understand your infection will likely be present for life and is at risk of progressing. Return to the hospital immediately if you have any fevers or any systemic symptoms. It is crucial to keep your wound clean and dressed. Primary Care Provider Not On Staff Doctor Time spent on discharge: > 30 minutes Pending Labs Laboratory Tests Test 04/17/17 17:32 04/17/17 21:00 04/18/17 05:24 04/18/17 07:59 Bedside Glucose 136mg/dL (70-220) 148mg/dL (70-220) 112mg/dL (70-220) White Blood Count 6.410^3/ul (4.8-10.8) Red Blood Count 3.5410^6/ul (4.70-6.10) Hemoglobin 8.9g/dl (14.0-18.0) Hematocrit 29.0% (42.0-52.0) Mean Corpuscular Volume 81.9fl (82.0-101.0) Mean Corpuscular Hemoglobin 25.1pg (29.0-33.0) Mean Corpuscular Hemoglobin Concent 30.7g/dl (32.0-37.0) Red Cell Distribution Width 16.0% (11.5-14.5) Platelet Count 00087^3/UL (140-415) Mean Platelet Volume 9.0fl (7.4-10.4) Neutrophils % 47.5% (39.0-77.0) Lymphocytes % 38.8% (15.0-51.0) Monocytes % 7.7% (0.0-11.0) Eosinophils % 4.1% (0.0-7.0) Basophils % 0.8% (0.0-2.0) Nucleated Red Blood Cells % 0.0/100WBC (0.0-0.0) Neutrophils # 3.010^3/ul (1.6-7.5) Lymphocytes # 2.510^3/ul (0.8-2.9) Monocytes # 0.510^3/ul (0.3-0.9) Eosinophils # 0.310^3/ul (0.0-0.5) Basophils # 0.110^3/ul (0.0-0.1) Nucleated Red Blood Cells # 0.010^3/ul (0.0-0.0) Prothrombin Time 15.6Sec (11.9-14.9) Prothrombin Time Ratio 1.2 INR International Normalized Ratio 1.22 Activated Partial Thromboplast Time 35.7Sec (25.0-35.0) Sodium Level 142mmol/L (135-144) Potassium Level 4.3mmol/L (3.5-5.1) Chloride Level 111mmol/L (97-110) Carbon Dioxide Level 23mmol/L (21-31) Anion Gap 12 (8-16) Blood Urea Nitrogen 23mg/dl (7-20) Creatinine 1.19mg/dl (0.61-1.24) Glucose Level 118mg/dl (70-220) Calcium Level 8.3mg/dl (8.4-10.2) Total Bilirubin 0.1mg/dl (0.2-1.3) Direct Bilirubin 0.00mg/dl (0.00-0.20) Indirect Bilirubin 0.1mg/dl (0-1.1) Aspartate Amino Transf (AST/SGOT) 38IU/L (15-46) Alanine Aminotransferase (ALT/SGPT) 31IU/L (13-69) Alkaline Phosphatase 131IU/L (42-121) Total Protein 8.0g/dl (6.1-8.1) Albumin 2.6g/dl (3.3-4.9) Globulin 5.40g/dl (1.3-3.2) Albumin/Globulin Ratio 0.48 Test 04/18/17 11:38 Bedside Glucose 180mg/dL (70-220) HUYEN MILES MD Apr 18, 2017 14:09
[2017-04-18 14:16] VITALS: BP 117/77; RESP 18
--- NOTE | 2017-04-18 16:16 | CONS ---
Date/Time of Note Date/Time of Note DATE: 04/18/17 TIME: 16:14 Assessment/Plan Assessment/Plan Additional Assessment/Plan 1. Non Oliguric DA on CKD possibley stage III due to ATN and prerenal azotemia 2. Severe anemia s/p PRBC 3. 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 HTN 5. HL 6. Right Ankle Fracture 7. Hyperuricemia without gout Plan: Cr improved to 1.1 with IVF hydration, d/c IV Fluids US renal unremarkable allopurinol 100mg po daily for hyperuricemia pt refused to have surgical intervention for right ankle., he wants to have group home IV abx, ID recomended IV vancomycin and Bactrim will follow up Consultation Date/Type/Reason Admit Date/Time Apr 14, 2017 at 22:04 Initial Consult Date 04/15/17 Type of Consultation: NEPHROLOGY Referring Provider: MARCO ANTONIO MCDONALD MD Exam/Review of Systems Vital Signs Vitals Vital Signs Date Time Temp Pulse Resp B/P Pulse Ox O2 Delivery O2 Flow Rate FiO2 04/18/17 14:16 97.7 79 18 117/77 98 04/17/17 13:19 Room Air 04/15/17 00:52 2.0 Intake and Output 04/17/17 04/17/17 04/18/17 15:00 23:00 07:00 Intake Total 880 ml 250 ml Output Total 600 ml Balance 280 ml 250 ml Results Result Diagram: 04/18/17 0524 04/18/17 0524 Results 24 hrs Laboratory Tests Test 04/17/17 17:32 04/17/17 21:00 04/18/17 05:24 04/18/17 07:59 Bedside Glucose 136 148 112 White Blood Count 6.4 Red Blood Count 3.54 L Hemoglobin 8.9 L Hematocrit 29.0 L Mean Corpuscular Volume 81.9 L Mean Corpuscular Hemoglobin 25.1 L Mean Corpuscular Hemoglobin Concent 30.7 L Red Cell Distribution Width 16.0 H Platelet Count 465 H Mean Platelet Volume 9.0 Neutrophils % 47.5 Lymphocytes % 38.8 Monocytes % 7.7 Eosinophils % 4.1 Basophils % 0.8 Nucleated Red Blood Cells % 0.0 Neutrophils # 3.0 Lymphocytes # 2.5 Monocytes # 0.5 Eosinophils # 0.3 Basophils # 0.1 Nucleated Red Blood Cells # 0.0 Prothrombin Time 15.6 H Prothrombin Time Ratio 1.2 INR International Normalized Ratio 1.22 Activated Partial Thromboplast Time 35.7 H Sodium Level 142 Potassium Level 4.3 Chloride Level 111 H Carbon Dioxide Level 23 Anion Gap 12 Blood Urea Nitrogen 23 #H Creatinine 1.19 Glucose Level 118 Calcium Level 8.3 L Total Bilirubin 0.1 L Direct Bilirubin 0.00 Indirect Bilirubin 0.1 Aspartate Amino Transf (AST/SGOT) 38 Alanine Aminotransferase (ALT/SGPT) 31 Alkaline Phosphatase 131 H Total Protein 8.0 Albumin 2.6 L Globulin 5.40 H Albumin/Globulin Ratio 0.48 Test 04/18/17 11:38 Bedside Glucose 180 Medications Medications Current Medications Ondansetron HCl (Zofran Inj) 4 mg Q6H PRN IV NAUSEA AND/OR VOMITING; Start at 22:30 Acetaminophen (Tylenol Tab) 650 mg Q6H PRN PO PAIN LEVEL 1-3 OR FEVER; Start 04/14/17 at 22:30 Acetaminophen/ Hydrocodone Bitart ([place] (5/325)) 1 tab Q6H PRN PO MODERATE PAIN LEVEL 4-6; Start 04/14/17 at 22:30 Diagnostic Test (Pha) (Accu-Chek) 1 ea 02 XX ; Start 04/15/17 at 02:00 Atorvastatin Calcium (Lipitor) 40 mg QHS PO Last administered on 04/17/17t 21: 01; Admin Dose 40 MG; Start 04/15/17 at 21:00 Miscellaneous Information 1 ea NOTE XX ; Start 04/15/17 at 02:00 Glucose (Glutose) 15 gm Q15M PRN PO DECREASED GLUCOSE; Start 04/15/17 at 02:00 Glucose (Glutose) 22.5 gm Q15M PRN PO DECREASED GLUCOSE; Start 04/15/17 at 02: 00 Dextrose (D50w Syringe) 25 ml Q15M PRN IV DECREASED GLUCOSE; Start 04/15/17 at 02:00 Dextrose (D50w Syringe) 50 ml Q15M PRN IV DECREASED GLUCOSE; Start 04/15/17 at 02:00 Glucagon (Glucagen) 1 mg Q15M PRN IM DECREASED GLUCOSE; Start 04/15/17 at 02: 00 Glucose 15 gm 15 gm Q15M PRN BUCCAL DECREASED GLUCOSE; Start 04/15/17 at 02:00 Ferric Sodium Gluconate Complex/ Sodium Chloride (Ferrlecit/NS) 110 ml @ 110 mls/hr Q24H IVPB Last administered on 04/18/17 11:32; Admin Dose 110 MLS/HR; Start 04/15/17 at 11:00; Stop 04/19/17 at 11:59 Epoetin Joby (Epogen (Non Esrd/Non Oncology)) 6,000 units TuThSa@17 SC Last administered on 04/17/17 17:36; Admin Dose 6,000 UNITS; Start 04/15/17 at 17: 00 Allopurinol (Zyloprim) 100 mg DAILY PO Last administered on 04/18/17 09:22; Admin Dose 100 MG; Start 04/17/17 at 09:00 IV Flush 10 ml 10 ml PRN PRN IV IV PROTOCOL; Start 04/17/17 at 19:30 Vancomycin HCl/ Dextrose/Water (Vancocin/D5W) 150 ml @ 75 mls/hr Q12H IVPB Last administered on 04/18/17 12:32; Admin Dose 75 MLS/HR; Start 04/18/17 at 11 :30 Miscellaneous Information (*Rx Drug Level Order Reminder*) 1 ONCE ONCE XX ; Start 04/19/17 at 10:30; Stop 04/19/17 at 10:31 KIMBERLY CONNOR MD Apr 18, 2017 16:16
[2017-04-18] MEDS ORDERED: VANCOMYCIN 1.5 GM in SOD CHLORIDE 0.9% 250 ML IVPB SCH (20:00)
--- NOTE | 2017-04-21 08:11 | PN ---
DATE: 04/18/2017 SUBJECTIVE: Patient is alert, looks comfortable, wants to go home. He is afebrile. WBC today 6.4. No shift, no bands. BUN 23, creatinine 1.19. ANTIMICROBIALS: Patient is on IV vancomycin, status post Zosyn, status post clindamycin. INDWELLINGS: Patient has left upper extremity PICC line. PHYSICAL EXAMINATION: GENERAL: Well-developed, middle-aged white man who is awake, in no distress. HEENT: Atraumatic, normocephalic. Sclerae anicteric. Buccal mucosa dry. NECK: Supple. CHEST: Rise symmetrical. Breath sounds clear. HEART: S1, S2. ABDOMEN: Soft, bowel sounds present. EXTREMITIES: Right lower extremity dressing intact. ASSESSMENT: 1. 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 2. Diabetes. 3. Peripheral vascular disease status post left below knee amputation. PLAN: Patient is being seen by ortho surgeon who advised below knee amputation. Patient is refusin g and wants to be discharged home on antibiotics. We will send him on IV vancomycin. Patient to llow up with Podiatry and ortho surgeon outpatient. Prognosis for saving limb is poor. Dictated By: KOURTNEY ZEPEDA PERSONAL CARE WORKER for [employer] Conf#: [id number] DID#: [id number]
== END 2017-04-18 19:05 | DRG 562 ==
LOC: E/R 16:41 → MS2 22:04
PROVIDERS: ADMIT Family Medicine; ATTEND Family Medicine
PROC: 30233N1 Transfusion of Nonautologous Red Blood Cells into Peripheral Vein, Percutaneous Approach (ICD-10-PCS; 2017-04-15)
PROC: 02H633Z Insertion of Infusion Device into Right Atrium, Percutaneous Approach (ICD-10-PCS; principal; 2017-04-17)
DX: S82.61XB Displaced fracture of lateral malleolus of right fibula, initial encounter for open fracture type I or II (principal); A48.0 Gas gangrene; N17.0 Acute kidney failure with tubular necrosis; A52.16 Charcot's arthropathy (tabetic); E11.52 Type 2 diabetes mellitus with diabetic peripheral angiopathy with gangrene; E11.69 Type 2 diabetes mellitus with other specified complication; D62 Acute posthemorrhagic anemia; N18.3 Chronic kidney disease, stage 3 (moderate); M86.9 Osteomyelitis, unspecified; S82.51XB Displaced fracture of medial malleolus of right tibia, initial encounter for open fracture type I or II; M85.871 Other specified disorders of bone density and structure, right ankle and foot; I12.9 Hypertensive chronic kidney disease with stage 1 through stage 4 chronic kidney disease, or unspecified chronic kidney disease; Z89.512 Acquired absence of left leg below knee; E79.0 Hyperuricemia without signs of inflammatory arthritis and tophaceous disease; X58.XXXA Exposure to other specified factors, initial encounter; Y93.01 Activity, walking, marching and hiking; L97.519 Non-pressure chronic ulcer of other part of right foot with unspecified severity
CPT/HCPCS: 36430; 36569; 71010; 73590; 73700; 76775; 76937; 80048; 80053; 80061; 80076; 81001; 82550; 82962; 83036; 83540; 83605; 83735; 83930; 83935; 84300; 84443; 84560; 85014; 85018; 85025; 85610; 85730; 86850; 86900; 86901; 86920; 93005; 93306; 96374; 96375; J0696; J0885; J1815; J2543; J2916; J3370; J7030; J7050; P9016